=== PATIENT | male | born 1960 | race Caucasian/White ===

== ENCOUNTER 2020-09-03 12:20 | Outpatient (REF) | payer BC, SELFPAY ==
[2020-09-03 13:28] LABS: Influenza A PCR NEGATIVE (Negative); Influenza B PCR NEGATIVE (Negative); Resp Syncy Virus RNA Qual PCR NEGATIVE (Negative); SARS COV2 PCR INHOUSE NEGATIVE (Negative)
== END 2020-09-03 12:21 | disposition home or self-care (01) ==
LOC: HO.LNP 12:20
PROVIDERS: PCP Internal Medicine; Visit Provider Internal Medicine
DX: Z20.828 Contact with and (suspected) exposure to other viral communicable diseases (principal)
CPT/HCPCS: 0241U

== ENCOUNTER 2020-09-17 14:28 | Outpatient (REF) | payer BC, SELFPAY ==
[2020-09-17 15:34] LABS: Influenza A PCR NEGATIVE (Negative); Influenza B PCR NEGATIVE (Negative); Resp Syncy Virus RNA Qual PCR NEGATIVE (Negative); SARS COV2 PCR INHOUSE POSITIVE (Negative)
== END 2020-09-17 14:29 | disposition home or self-care (01) ==
LOC: HO.LNP 14:28
PROVIDERS: Visit Provider Internal Medicine
DX: Z20.822 Contact with and (suspected) exposure to COVID-19 (principal)
CPT/HCPCS: 0241U

== ENCOUNTER 2021-01-19 08:18 | Outpatient (REF) | payer BC, SELFPAY ==
[2021-01-19 10:27] LABS: MANUAL DIFF FLAG NO
[2021-01-19 10:41] LABS: Eosinophils Absolute Auto 0.3 X10*3/uL (0.0-0.4); Eosinophils Percent Auto 7.4 % (0-4); Hemoglobin 14.9 g/dl (14.0-18.0); Imm Gran Abs Auto 0.01 X10*3/uL (0.00-0.03); Imm Gran Pct Auto 0.2 % (0.0-0.4); Lymphocytes Absolute Auto 1.7 X10*3/uL (1.2-4.9); Lymphocytes Percent Auto 41.6 % (20-40); Mean Corpuscular HGB Conc 34.7 g/dl (31.0-36.0); Mean Corpuscular Hemoglobin 31.2 pg (27.0-33.0); Monocytes Absolute Auto 0.5 X10*3/uL (0.1-1.2); Monocytes Percent Auto 11.1 % (2-11); Neutrophils Absolute Auto 1.6 X10*3/uL (2.0-8.3); Neutrophils Percent Auto 38.7 % (45-73); Platelet Count 168 X10*3/uL (160-400); Red Blood Count 4.78 X10*6/uL (4.60-5.80); Red Cell Distribution Width 12.2 % (11.0-16.0)
[2021-01-19 11:39] LABS: Alanine Aminotransferase 24 U/L (0-40); Albumin Level 4.2 g/dL (3.5-5.0); Alkaline Phosphatase 63 U/L (39-117); Anion Gap 10 (12-20); Aspartate Amino Transferase 22 U/L (5-37); Bilirubin Total 1.3 mg/dL (0.0-1.0); Blood Urea Nitrogen 14 mg/dL (9-16); Calcium 8.8 mg/dL (8.4-10.2); Carbon Dioxide 28 mmol/L (22-29); Chloride 108 mmol/L (96-108); Cholesterol 116 mg/dL; Estimated Glomerular Filt Rate > 60; Glucose Fasting 95 mg/dL (60-99); HDL Cholesterol 46 mg/dL; Iron 227 mcg/dL (45-160); LDL Cholesterol Calculated 61 mg/dl; Potassium 4.3 mmol/L (3.3-5.1); Sodium 142 mmol/L (135-145); Total Iron Binding Capacity < 244 mcg/dL (228-428); Total Protein 6.9 g/dL (6.5-8.0); Triglycerides 45 mg/dL; Unsaturated Iron Binding < 17 ug/dL
[2021-01-19 12:22] LABS: Ferritin 315 ng/mL (20-250); Free T4 (Free Thyroxine) 1.25 ng/dL (0.71-1.85); Prostate Specific Antigen 1.89 ng/mL (<0.05-4.0); Thyroid Stimulating Hormone 0.59 uIU/mL (0.32-4.0)
== END 2021-01-19 08:19 | disposition home or self-care (01) ==
LOC: HO.10HDL 08:18
PROVIDERS: Visit Provider Internal Medicine
DX: Z00.00 Encounter for general adult medical examination without abnormal findings (principal); E03.9 Hypothyroidism, unspecified; E83.119 Hemochromatosis, unspecified; Z12.5 Encounter for screening for malignant neoplasm of prostate
CPT/HCPCS: 36415; 80053; 80061; 82728; 83540; 84153; 84439; 84443; 85025

== ENCOUNTER 2021-03-21 10:03 | Outpatient (REF) | payer BC, SELFPAY | END 2021-03-21 10:04 | disposition home or self-care (01) | LOC: HO.BBR 10:03 | PROVIDERS: Visit Provider Internal Medicine | DX: Z13.89 Encounter for screening for other disorder (principal) ==

== ENCOUNTER 2022-03-23 08:02 | Outpatient (REF) | payer BC, SELFPAY | END 2022-03-23 08:03 | disposition home or self-care (01) | LOC: HO.BBR 08:02 | PROVIDERS: Visit Provider Internal Medicine | DX: Z13.89 Encounter for screening for other disorder (principal) ==

== ENCOUNTER 2022-07-17 08:00 | Outpatient (RCR) | payer BC, SELFPAY ==
--- NOTE | 2022-08-23 08:59 | MHC.PT.DC ---
[facility] [place] [facility] [place] [facility] [place] [facility] [address] Dakota Rivera [address] [phone] F: [phone] F: [phone] F: [phone] F: [phone] Physical Therapy Discharge Report Diagnosis: BPPV Date of Surgery: Date of Evaluation: 07/13/22 Date of Discharge: 07/24/22 Treatments to Date: 3 Cancellations to Date: 0 No Shows to Date: 0 Discharge Status: Discharge Summary: At last attended visit we were unable to elicit symptoms and he remains negative for BPPV. He has not had symptoms in the last several weeks and we will DC at this time with instructions for pt to contact our office if he becomes symptomatic. Electronically signed by: Stefany Suarez PT DPT Please sign and return to therapist. Thank you for your referral.
== END 2022-08-23 09:00 | disposition home or self-care (01) ==
LOC: HO.PT 08:00
PROVIDERS: PCP Internal Medicine; Visit Provider Internal Medicine
DX: R42 Dizziness and giddiness (principal)
CPT/HCPCS: 95992; 97112; 97162

== ENCOUNTER 2022-08-30 11:40 | Outpatient (REF) | payer BC, SELFPAY ==
[2022-08-30 13:38] LABS: MANUAL DIFF FLAG NO
[2022-08-30 14:00] LABS: Basophils Absolute Auto 0.1 X10*3/uL (0.0-0.2); Basophils Percent Auto 1.1 % (0-2); Eosinophils Absolute Auto 0.2 X10*3/uL (0.0-0.4); Hemoglobin 15.1 g/dl (14.0-18.0); Imm Gran Abs Auto 0.02 X10*3/uL (0.00-0.03); Imm Gran Pct Auto 0.4 % (0.0-0.4); Mean Corpuscular HGB Conc 35.1 g/dl (31.0-36.0); Mean Corpuscular Volume 88.3 fL (80.0-98.0); Mean Platelet Volume 10.5 fL (9.4-12.4); Monocytes Absolute Auto 0.5 X10*3/uL (0.1-1.2); Monocytes Percent Auto 11.2 % (2-11); Neutrophils Absolute Auto 1.8 x10*3/uL (2.0-8.3); Neutrophils Percent Auto 40.3 % (45-73); Platelet Count 196 X10*3/uL (160-400); Red Blood Count 4.87 X10*6/uL (4.60-5.80); Red Cell Distribution Width 12.3 % (11.0-16.0); White Blood Count 4.5 X10*3/uL (4.8-10.8)
[2022-08-30 14:31] LABS: Alanine Aminotransferase 24 U/L (0-40); Albumin Level 4.5 g/dL (3.5-5.0); Alkaline Phosphatase 73 U/L (39-117); Anion Gap 11 (12-20); Aspartate Amino Transferase 22 U/L (5-37); Bilirubin Total 0.9 mg/dL (0.0-1.0); Blood Urea Nitrogen 14 mg/dL (9-16); Calcium 9.4 mg/dL (8.4-10.2); Carbon Dioxide 29 mmol/L (22-29); Chloride 104 mmol/L (96-108); Estimated Glomerular Filt Rate > 60; Glucose Random 100 mg/dL (60-115); Sodium 140 mmol/L (135-145); Total Protein 7.2 g/dL (6.5-8.0); Vitamin D 25-OH Total 39.7 ng/mL (>30)
== END 2022-08-30 11:41 | disposition home or self-care (01) ==
LOC: HO.10HDL 11:40
PROVIDERS: Visit Provider Internal Medicine
DX: Z01.818 Encounter for other preprocedural examination (principal); E83.119 Hemochromatosis, unspecified
CPT/HCPCS: 36415; 80053; 82306; 85025

== ENCOUNTER 2023-05-04 10:57 | Outpatient (REF) | payer BC, SELFPAY | END 2023-05-04 10:58 | disposition home or self-care (01) | LOC: HO.BBR 10:57 | PROVIDERS: Visit Provider Internal Medicine | DX: Z13.89 Encounter for screening for other disorder (principal) ==

== ENCOUNTER 2023-08-20 09:45 | Outpatient (REF) | payer BC, SELFPAY ==
--- NOTE | ~2023-08-20 | US_ITS ---
EXAMINATION: US EXTRACRANIAL CAROTID DUPLEX, BILATERAL CLINICAL INFORMATION: Dizziness, neck pulsation, headache COMPARISON: None available. TECHNIQUE: Real-time ultrasound and Doppler techniques (integrating B-mode 2-D vascular images, Doppler spectral analysis and color-flow Doppler imaging) were utilized to interrogate the extracranial carotid arteries, the vertebral arteries and proximal subclavian arteries bilaterally. The degree of stenosis is determined by criteria similar to NASCET. FINDINGS: Right Side: 1. There is no atherosclerotic plaque seen in the bifurcation/proximal ICA region. 2. The common carotid artery PSV proximally is 75 cm/s and distally 82 cm/s. 3. The proximal internal carotid artery velocities are 53 cm/s systolic and 21 cm/s diastolic. 4. The proximal external carotid artery PSV is 89 cm/s. 5. The vertebral artery shows antegrade flow. 6. The subclavian artery waveforms are normal. Left Side: 1. There is no atherosclerotic plaque seen in the bifurcation/proximal ICA region. 2. The common carotid artery PSV proximally is 96 cm/s and distally 91 cm/s. 3. The proximal internal carotid artery velocities are 44 cm/s systolic and 22 cm/s diastolic. 4. The proximal external carotid artery PSV is 95 cm/s. 5. The vertebral artery shows antegrade flow. 6. The subclavian artery waveforms are normal. US/US carotid duplex BI IMPRESSION: 1. RIGHT: Normal right internal carotid artery without atherosclerotic plaque or hemodynamically significant stenosis. 2. LEFT: Normal left internal carotid artery without atherosclerotic plaque or hemodynamically significant stenosis.
== END 2023-08-20 09:46 | disposition home or self-care (01) ==
LOC: HO.US 09:45
PROVIDERS: PCP Internal Medicine; Visit Provider Internal Medicine
DX: R09.89 Other specified symptoms and signs involving the circulatory and respiratory systems (principal)
CPT/HCPCS: 93880

== ENCOUNTER 2024-02-15 09:04 | Outpatient (REF) | payer BC, SELFPAY ==
--- NOTE | ~2024-02-15 | US_ITS ---
EXAMINATION: US COMPLETE ABDOMEN WITH LIVER ELASTOGRAPHY CLINICAL INFORMATION: Hereditary hemochromatosis. COMPARISON: Ultrasound abdomen 10/01/2018. TECHNIQUE: Real-time imaging of the abdominal viscera. Noninvasive ultrasound liver fibrosis assessment is performed using Catherine ElastPQ point quantification shear wave elastography (2D-SWE) with a C5-2 MHz transducer. Multiple elastography samples are obtained. FINDINGS: PANCREAS: Pancreas was obscured by bowel gas and could not be evaluated. ABDOMINAL AORTA: The proximal, middle, and distal aortic segments are normal in caliber. INFERIOR VENA CAVA: Visualized portions are normal. LIVER: Liver is enlarged with increased echogenicity consistent with a diagnosis of hemochromatosis or hepatic steatosis. No focal lesion or intrahepatic biliary duct dilatation. The right lobe measures 18.2 cm in length. The left lobe measures 13.0 cm in length. Portal flow is towards the liver (hepatopetal). Shear wave liver elastography median stiffness is 1.56 m/s (reference: normal median stiffness is 1.3 m/s or less). IQR/median stiffness to assess sampling precision is 0.04 (reference: good quality data set is IQR/median stiffness of 0.15 or less). GALLBLADDER: Status post cholecystectomy. COMMON BILE DUCT: Normal in caliber measuring 0.8 cm in diameter. RIGHT KIDNEY: No hydronephrosis. No renal calculi or focal parenchymal lesions. The kidney measures 10.3 cm in maximum dimension. LEFT KIDNEY: No hydronephrosis. No renal calculi or focal parenchymal lesions. The kidney measures 9.6 cm in maximum dimension. SPLEEN: Normal. The spleen measures 10.7 cm in maximum dimension. FREE FLUID: None. US/US abdomen comp w elastography IMPRESSION: 1. Enlarged echogenic liver consistent with the diagnosis of hemochromatosis or hepatic steatosis. 2. Liver elastography: In the absence of other known clinical signs, measurements rule out compensated advanced chronic liver disease. If there are known clinical signs, further testing may be needed for confirmation. REFERENCE: Society of Radiologists in Ultrasound Liver Stiffness Thresholds (2020): LIVER STIFFNESS THRESHOLDS: *Liver Stiffness equal or less than 1.3 m/s: High probability of being normal. *Liver Stiffness less than 1.7 m/s: In the absence of other known clinical signs, rules out compensated advanced chronic liver disease. *Liver Stiffness 1.7-2.1 m/s: Suggestive of compensated advanced chronic liver disease but need further test for confirmation. *Liver Stiffness over 2.1 m/s: Rules in compensated advanced chronic liver disease. *Liver Stiffness over 2.4 m/s: Suggestive of clinically significant portal hypertension. QUALITY OF DATA SET: *IQR/Median value equal or less than 0.15 implies a quality data set. *IQR/Median value over 0.15 implies a poor quality data set. SIGNIFICANT CHANGE FROM PRIOR EXAM: Significant change if liver stiffness measurement is 10% or greater from prior exam. OTHER CONSIDERATIONS: The stage of liver fibrosis may be overestimated in the setting of acute hepatitis, liver inflammation, elevated liver function tests, hepatic vascular congestion, obstructive cholestasis, non-fasting state, and infiltrative diseases such as amyloidosis and lymphoma. In some patients with NAFLD, the liver stiffness thresholds for compensated advanced chronic liver disease may be lower. In causes other than viral hepatitis and NAFLD, liver stiffness thresholds are not well established.
== END 2024-02-15 09:05 | disposition home or self-care (01) ==
LOC: HO.US 09:04
PROVIDERS: PCP Internal Medicine; Visit Provider Internal Medicine
DX: E83.110 Hereditary hemochromatosis (principal)
CPT/HCPCS: 76700; 76981

== ENCOUNTER 2024-02-15 09:42 | Outpatient (REF) | payer BC, SELFPAY ==
[2024-02-15 10:42] LABS: MANUAL DIFF FLAG NO
[2024-02-15 10:52] LABS: Basophils Percent Auto 0.9 % (0-2); Eosinophils Absolute Auto 0.2 X10*3/uL (0.0-0.4); Eosinophils Percent Auto 4.6 % (0-4); Hematocrit 43.9 % (42.0-52.0); Hemoglobin 15.5 g/dl (14.0-18.0); Imm Gran Abs Auto 0.01 X10*3/uL (0.00-0.03); Imm Gran Pct Auto 0.2 % (0.0-0.4); Lymphocytes Absolute Auto 1.9 X10*3/uL (1.2-4.9); Lymphocytes Percent Auto 43.3 % (20-40); Mean Corpuscular HGB Conc 35.3 g/dl (31.0-36.0); Mean Corpuscular Hemoglobin 31.1 pg (27.0-33.0); Monocytes Absolute Auto 0.6 X10*3/uL (0.1-1.2); Monocytes Percent Auto 12.8 % (2-11); Neutrophils Absolute Auto 1.7 x10*3/uL (2.0-8.3); Neutrophils Percent Auto 38.2 % (45-73); Platelet Count 174 X10*3/uL (160-400); Prothrombin Time 12.2 SEC (11.1-13.3); Red Blood Count 4.99 X10*6/uL (4.60-5.80); Red Cell Distribution Width 12.6 % (11.0-16.0); White Blood Count 4.4 X10*3/uL (4.8-10.8)
[2024-02-15 11:19] LABS: Alanine Aminotransferase 39 U/L (0-40); Albumin Level 4.3 g/dL (3.5-5.0); Alkaline Phosphatase 75 U/L (39-117); Aspartate Amino Transferase 26 U/L (5-37); Bilirubin Direct 0.5 mg/dL (0.0-0.5); Bilirubin Total 1.5 mg/dL (0.0-1.0); Iron 251 mcg/dL (45-160); Percent Iron Saturation 91 % (15-50); Total Iron Binding Capacity 276 mcg/dL (228-428); Total Protein 7.1 g/dL (6.5-8.0); Unsaturated Iron Binding < 25 ug/dL
[2024-02-15 11:20] LABS: Ferritin 480 ng/mL (20-250)
[2024-02-18 12:54] LABS: Alpha Fetoprotein 1.2 ng/mL (<6.1)
[2024-03-05 15:13] LABS: FIB-ALT 29 U/L (9-46); FIB-Alpha-2-Macroglobulin 237 mg/dL (106-279); FIB-Apolipoprotein A1 157 mg/dL (94-176); FIB-GGT 23 U/L (3-70); FIB-Haptoglobin 79 mg/dL (43-212); FIB-Total Bilirubin 1.1 mg/dL (0.2-1.2); Liver Fibrosis Score 0.51; Liver Fibrosis Stage F2; Nec Inflam Act Grade A0-A1; Nec Inflam Act Score 0.18
== END 2024-02-15 09:43 | disposition home or self-care (01) ==
LOC: HO.10HDL 09:42
PROVIDERS: Visit Provider Internal Medicine
DX: E83.110 Hereditary hemochromatosis (principal)
CPT/HCPCS: 36415; 80076; 81596; 82105; 82728; 83540; 85025; 85610

== ENCOUNTER 2024-03-13 08:50 | Outpatient (REF) | payer BC, SELFPAY | END 2024-03-13 08:51 | disposition home or self-care (01) | LOC: HO.BBR 08:50 | PROVIDERS: PCP Internal Medicine; Visit Provider Internal Medicine | DX: Z13.89 Encounter for screening for other disorder (principal) ==

== ENCOUNTER 2024-05-21 06:23 | Day surgery (SDC) | payer BC, SELFPAY ==
[2024-05-19 11:24] VITALS: BMI 25.1
--- NOTE | 2024-05-20 10:13 | P.CONAN_ITS ---
Documented by User: Jeanette Echavarria NP 05/20/24 10:13 HPI - Anesthesia Eval Consult details Narrative: 64yo M for Colonoscopy [facility] Past Medical History Medical History GERD (gastroesophageal reflux disease) Hiatal hernia Testicular cancer Thyroid disease Hemochromatosis Surgical History Surgical History History of esophagogastroduodenoscopy (EGD) Hx of left knee surgery Hx of cholecystectomy History of removal of testicle H/O colonoscopy Hx of lymph node excision Social History Social History Are you a primary customer care representative to a significant other at home: No Do you presently have visiting nurse or other home services: No Patient Tobacco Use Status: Never used Tobacco Use of substances other than those prescribed or required for medical reasons: No Have you been hit, kicked, punched, or otherwise hurt by someone within the past year? If so, by whom?: No Advance Directives: No Advance Directives Information Provided: Yes Recently lost weight without trying: No Eating poorly because of decreased appetite: No Meds Allergies Allergy/AdvReac Type Severity Reaction Status Date / Time Penicillins Allergy Mild UNKNOWN Verified 05/21/24 06:47 Home Medications ?Medication ?Instructions ?Recorded ?Confirmed ?Last Taken ?Type levothyroxine 125 mcg tablet 125 mcg PO DAILY 05/19/24 05/19/24 Unknown History (Levoxyl) omeprazole 20 mg capsule,delayed 20 mg PO DAILY 05/19/24 05/19/24 Unknown History release Exam Height,Weight and Vital Signs: Height 5 ft 10 in Weight 79.379 kg Assessment and Plan Assessment Anesthesia Assessment: Chart Reviewed Documented by User: Mckayla Priest MD 05/21/24 07:23 [facility] Past Medical History Medical History GERD (gastroesophageal reflux disease) Hiatal hernia Testicular cancer Thyroid disease Hemochromatosis Surgical History Surgical History History of esophagogastroduodenoscopy (EGD) Hx of left knee surgery Hx of cholecystectomy History of removal of testicle H/O colonoscopy Hx of lymph node excision History of Problems with Anesthesia: No Social History Social History Are you a primary customer care representative to a significant other at home: No Do you presently have visiting nurse or other home services: No Patient Tobacco Use Status: Never used Tobacco Use of substances other than those prescribed or required for medical reasons: No Have you been hit, kicked, punched, or otherwise hurt by someone within the past year? If so, by whom?: No Advance Directives: No Advance Directives Information Provided: Yes Recently lost weight without trying: No Eating poorly because of decreased appetite: No Meds Allergies Allergy/AdvReac Type Severity Reaction Status Date / Time Penicillins Allergy Mild UNKNOWN Verified 05/21/24 06:47 Home Medications ?Medication ?Instructions ?Recorded ?Confirmed ?Last Taken ?Type levothyroxine 125 mcg tablet 125 mcg PO DAILY 05/19/24 05/19/24 Unknown History (Levoxyl) omeprazole 20 mg capsule,delayed 20 mg PO DAILY 05/19/24 05/19/24 Unknown History release Exam Airway Mallampati Class: III TM Dist: >3cm Neck ROM: Full Loose/Missing/Broken Teeth: No Heart: RRR Lungs: CTA Assessment and Plan Assessment Anesthesia Assessment: Anesthesia Plan Discussed Final Anesthetic Review History of Problems with Anesthesia: No NPO: Yes ASA Class: II Final Preanesthetic Review: Meds/Allgs Chart Reviewed, Consent Obtained/Reviewed and Anes Risks/Benef Reviewed Patient Risk: Low Procedure Risk: Low Anesthetic Plan Anesthetic Plan: MAC: Disposition: Standard PACU
[2024-05-21 06:49] VITALS: BMI 24.0
[2024-05-21 07:00] VITALS: BP 126/81; PULSE 58; RESP 16; TEMP 36.2; O2SAT 98
[2024-05-21] MEDS: Lactated Ringers 1,000 ML 100 ML IVCONT (07:11)
[2024-05-21 08:25] VITALS: BP 116/77; PULSE 57; RESP 18; TEMP 36.2; O2SAT 100
--- NOTE | 2024-05-21 08:27 | P.BOP_ITS ---
Brief Operative Note Date of Service: 05/21/24 Pre-op diagnosis: Screening Post-op diagnosis: other (Colon polyp) Procedure: Colonoscopy to the cecum and TI with hot snare polypectomy Surgeon: Palmer Paz MD Anesthesia: MAC Was an Air Intercept Controller used for this Procedure?: No Estimated blood loss (mL): 0 Pathology: other (A. Cecal polyp) Condition: stable Disposition: PACU
[2024-05-21 08:30] VITALS: BP 109/73; PULSE 70; RESP 18; O2SAT 99
[2024-05-21 08:35] VITALS: BP 116/66; BP 122/54; PULSE 54; PULSE 63; RESP 16; O2SAT 100; O2SAT 99
[2024-05-21 08:45] VITALS: BP 124/54; PULSE 57; RESP 18; TEMP 36.3; O2SAT 100
--- NOTE | 2024-05-21 09:00 | OP_ITS ---
DATE OF SERVICE: 05/21/2024 SURGEON: Palmer Paz MD INDICATIONS: The patient presents for evaluation of personal history of tubular adenoma of the colon and colorectal cancer screening. Full consent was obtained from him for this, including risks of bleeding and perforation. PREOPERATIVE DIAGNOSIS: POSTOPERATIVE DIAGNOSIS: PROCEDURE PERFORMED: Colonoscopy to cecum and terminal ileum with hot snare polypectomy. ESTIMATED BLOOD LOSS: COMPLICATIONS: ANESTHESIA: Monitored anesthesia care. ASSISTANTS: SPECIMENS: PREOPERATIVE DIAGNOSES: Colorectal cancer screening and personal history of tubular adenoma of the colon. POSTOPERATIVE DIAGNOSES: Colorectal cancer screening and personal history of tubular adenoma of the colon, colon polyp, mild diverticulosis, and small internal hemorrhoids. DESCRIPTION OF PROCEDURE: The patient was placed in the left lateral decubitus position. The digital rectal exam revealed no abnormalities. The Olympus video pediatric colonoscope was entered into the rectum and advanced easily to the cecum. Once in the cecum, I did identify cecal pouch with appendiceal orifice and a normal-appearing ileocecal valve. The terminal ileum was cannulated and appeared normal. The scope was withdrawn back in the colon. The entire cecum was well visualized. In the cecum, adjacent to the area of the appendiceal orifice, was a flat but raised approximately 12 mm probable adenomatous polyp, which was removed by hot snare polypectomy recovered by suction. The polypectomy site appeared clean, without any sign of residual polyp nor bleeding. The scope was slowly withdrawn assessing all mucosal surfaces carefully. Preparation was excellent. I did not visualize any other polyps, colitis, nor angiodysplasia. There was a mild amount of sigmoid diverticulosis. In the rectum, scope was retroflexed visualizing small internal hemorrhoids, but no other pathology. The rectal mucosa appeared normal. The scope was straightened and withdrawn from the patient. He tolerated the procedure well and was returned to recovery area in stable condition. IMPRESSION: 1. Colon polyp. 2. Diverticulosis. 3. Internal hemorrhoids. PLAN: The results of the pathology will be checked. If this is a tubular adenoma, I would recommend a followup coloscopy in 3 years rather than 5 given its flat nature. If that happens only be hyperplastic, I would then recommend a followup coloscopy in 5 years. He will see me in 1 year for followup of the underlying hemochromatosis. He was advised to continue his blood donations at least every 2 to 3 months. He will otherwise see me on a p.r.n. basis. MD BARRY Duffy/MONALISA / [phone]
== END 2024-05-21 08:56 | disposition home or self-care (01) ==
PROVIDERS: PCP Internal Medicine; Visit Provider Internal Medicine
PROC: 0DJD8ZZ Inspection of Lower Intestinal Tract, Via Natural or Artificial Opening Endoscopic (ICD-10-PCS; CPT 45378; principal; 2024-05-21 07:30)
DX: Z12.11 Encounter for screening for malignant neoplasm of colon (principal); K63.5 Polyp of colon; K57.30 Diverticulosis of large intestine without perforation or abscess without bleeding; K64.8 Other hemorrhoids; Z86.010 Personal history of colon polyps; Z85.47 Personal history of malignant neoplasm of testis
CPT/HCPCS: 45385; 88305; J2704

== ENCOUNTER 2024-08-05 13:57 | Outpatient (REF) | payer BC, SELFPAY | END 2024-08-05 13:58 | disposition home or self-care (01) | LOC: HO.BBR 13:57 | PROVIDERS: PCP Internal Medicine; Visit Provider Internal Medicine | DX: Z13.89 Encounter for screening for other disorder (principal) ==

== ENCOUNTER 2024-12-18 13:13 | Outpatient (REF) | payer BC, SELFPAY ==
--- OUTSIDE RECORDS SUMMARY | 2024-12-18 16:13 | XMS_ITS ---
Author Organization [facility] Address [address] [place] [address] Care Team Providers Care Special Events Coordinator Name Role Phone Manpreet Winchester MD Primary Care Provider Palmer Quiles [phone] REASON FOR VISIT Phlebotomies and U/S Encounters Encounter Location Date Provider Diagnosis [facility] [address] [place] [address] 03/02/2024 Palmer Paz Plan Of Treatment No Information Progress Notes * ROMINA CABELLOOB:1960 (64 yo M)Acc No.[id number]:03/02/2024 Patient:?LAKESHA CABELLO :1960???Age:64 Y???Sex:Male Address:[address] [place] [address] * true * Date:? Generated for Jessiei robe/Mery/eTransmitting on:?12/18/2024 04:13 PM EDT
--- OUTSIDE RECORDS SUMMARY | 2024-12-18 16:13 | XMS_ITS ---
Author Organization [facility] Address [address] [place] [address] Care Team Providers Care Can Tender Name Role Phone Manpreet Winchester MD Primary Care Provider Palmer Quiles [phone] REASON FOR VISIT screening,hx polyps Problems Problem Type SNOMED Code ICD Code Onset Dates Problem Status W/U Status Risk Notes Problem Diverticular disease of colon (095138926) Diverticulosis of large intestine without perforation or abscess without bleeding (K57.30) Active confirmed Encounters Encounter Location Date Provider Diagnosis [facility] Outpatient [address] [place] [address] [id number] 05/21/2024 Palmer Paz Colon cancer scree tg Z12.11 ; Colon polyps K63.5 ; Diverticulosis of large intestine without perforation or abscess without bleeding K57.30 and Other hemorrhoids K64.8 Assessments Encounter Date Diagnosis (ICD Code) Assessment Notes Treatment Notes Treatment Clinical Notes Section Notes 05/21/2024 Colon cancer screening (ICD-10 - Z12.11) 05/21/2024 Colon polyps (ICD-10 - K63.5) 05/21/2024 Diverticulosis of large intestine without perforation or abscess without bleeding (ICD-10 - K57.30) 05/21/2024 Other hemorrhoids (ICD-10 - K64.8) Plan Of Treatment No Information Progress Notes * ROMINA CABELLOOB:1960 (64 yo M)Acc No.[id number]:05/21/2024 COLON WITH MAC Patient:?CABELLOCARRI DOWLINGY Provider:?Palmer Paz MD :1960???Age:64 Y???Sex:Male Cristian e:05/21/2024 Address:[address] [place] [address], [place] Pcp:Manpreet Winchester MD Subjective: * Chief Complaints: * ???1. Screening,hx polyps. * Medical History:? Objective: * Vitals:? Assessment: * Assessment: 1.?Colon cancer screening - Z12.11 (Primary)???2.?Colon polyps - K63.5???3.?Diverticulosis of large intestine without perforation or abscess without bleeding - K57.30???4.?Other hemorrhoids - K64.8??? Plan: * Treatment: * Procedure Codes:?84047 LESIO N REMOVAL COLONOSCOPY, Modifiers: PT * * The named appointment provid er may or may not be the originator of this progress note, and it is not deemed complete until electronically signed by the appointment provider. Sign off status: Pending * Provider:?Palmer Paz MD Date:? 024 Generated for Estefania nagel/Mery/eTransmitting on:?12/18/2024 04:13 PM EDT
--- OUTSIDE RECORDS SUMMARY | 2024-12-18 16:13 | XMS_ITS | Patient Health Record ---
Author Organization [facility] Address [address] [place] [address] Care Team Providers Care Osteopathic Neurologist Name Role Phone Manpreet Winchester MD Primary Care Provider Palmer Quiles [phone] Allergies Allergen (clinical drug ingredient) Drug/Non Drug Allergy documented on EMR Reaction Allergy Type Onset Date Status Penicillin Unknown Drug Allergy Active Results Component Value Reference Range Notes Complete Blood Count Auto Di ff Reviewed date:02/15/2024 01:07:19 PM Interpretation: Performing Lab:[facility], [address] [place] [phone] Notes/Report: White Blood Count 4.4 4.8-10.8 X10*3/uL Red Blood Count 4.99 4.60-5.80 X10*6/uL Hemoglobin 15.5 14.0-18.0 g/dl Hematocrit 43.9 42.0-52.0 % Mean Corpuscular Volume 88.0 80.0-98.0 fL Mean Corpuscular Hemoglobin 31.1 27.0-33.0 pg Mean Corpuscular HGB Conc 35.3 31.0-36.0 g/dl Red Cell Distribution Width 12.6 11.0-16.0 % Platelet Count 174 160-400 X10*3/uL Mean Platelet Volume 10.0 9.4-12.4 fL Neutrophils Percent Auto 38.2 45-73 % Imm Gran Pct Auto 0.2 0.0-0.4 % Lymphocytes Percent Auto 43.3 20-40 % Monocytes Percent Auto 12.8 2-11 % Eosinophils Percent Auto 4.6 0-4 % Basophils Percent Auto 0.9 0-2 % NRBC Pct Auto 0.0 0.0-0.2 /100WBC Neutrophils Absolute Auto 1.7 2.0-8.3 x10*3/uL Imm Gran Abs Auto 0.01 0.00-0.03 X10*3/uL Lymphocytes Absolute Auto 1.9 1.2-4.9 X10*3/uL Monocytes Absolute Auto 0.6 0.1-1.2 X10*3/uL Eosinophils Absolute Auto 0.2 0.0-0.4 X10*3/uL Basophils Absolute Auto 0.0 0.0-0.2 X10*3/uL NRBC Abs Auto 0.000 0.0-0.012 X10*3/uL Prothrombin Time INR Reviewed date:02/15/2024 01:06:50 PM Interpretation: Performing Lab:[address] [address] Notes/Report: Prothrombin Time 12.2 11.1-13.3 SEC INTERNATIONAL NORM RATIO 1.0 0.9-1.1 INTERNATIONAL NORMALIZED RATIO (INR) REFERENCE RANGES Reference Range For patients not on anticoagulant therapy: 0.9 - 1.1 INR ranges for oral anticoagulant therapy: For prevention and treatment of venous thrombosis and pulmonary embolism: 2.0 - 3.0 For acute myocardial infarction with aspirin therapy: 2.0 - 3.0 For acute myocardial infarction without aspirin therapy: 3.0 - 4.0 For patients with mechanical prosthetic heart valves: 2.5 - 3.5 Liver Panel Reviewed date:02/15/2024 01:08:01 PM Interpretation: Performing Lab:[address] [address] Notes/Report: Bilirubin Total 1.5 0.0-1.0 mg/dL Bilirubin Direct 0.5 0.0-0.5 mg/dL Aspartate Amino Transferase 26 5-37 U/L Alanine Aminotransferase 39 0-40 U/L Total Protein 7.1 6.5-8.0 g/dL Albumin Level 4.3 3.5-5.0 g/dL Alkaline Phosphatase 75 39-117 U/L IRON PROFILE Reviewed date:03/02/2024 02:43:55 PM Interpretation: Performing Lab:[address] [place] [address] Notes/Report: Iron 251 45-160 mcg/dL Total Iron Binding Capacity 276 228-428 mcg/dL Percent Iron Saturation 91 15-50 % Unsaturated Iron Binding < 25 Ferritin Reviewed date:02/29/2024 05:55:37 PM Interpretation: Performing Lab:[facility], [address] [place] [phone] Notes/Report: Ferritin 480 20-250 ng/mL Alpha Fetoprotein Reviewed date:05/18/2024 06:16:23 PM Interpretation: Performing Lab:[facility], [address] [place] [phone] Notes/Report: Alpha Fetoprotein 1.2 <6.1 ng/mL This test was performed using the Haivision chemiluminescent method. Values obtained from different assay methods cannot be used interchangeably. AFP levels, regardless of value, should not be interpreted as absolute evidence of the presence or absence of disease. THIS TEST WAS PERFORMED AT: [employer] [address] [place] [phone] MEGGAN KAUR MD Liver Fibrosis Pnl Reviewed date:05/18/2024 06:16:31 PM Interpretation: Performing Lab:[address] [address] Notes/Report: Liver Fibrosis Score 0.51 Liver Fibrosis Stage F2 Liver Fibrosis Interpretation SEE NOTE moderate fibrosis Fibro Test Score (f) Metavir Score f>=0 and f<=0.21 : F0 (no fibrosis) f>0.21 and f<=0.27 : F0-F1 (no fibrosis) f>0.27 and f<=0.31 : F1 (minimal fibrosis) f>0.31 and f<=0.48 : F1-F2 (minimal fibrosis) f>0.48 and f<=0.58 : F2 (moderate fibrosis) f>0.58 and f<=0.72 : F3 (advanced fibrosis) f>0.72 and f<=0.74 : F3-F4 (advanced fibrosis) f>0.74 and f<=1.00 : F4 (severe fibrosis) Nec Inflam Act Score 0.18 Nec Inflam Act Grade A0-A1 Nec Inflam Act Interpretation SEE NOTE no activity ActiTest Score (a) Metavir Score a>=0 and a<=0.17 : A0 (no activity) a>0.17 and a<=0.29 : A0-A1 (no activity) a>0.29 and a<=0.36 : A1 (minimal activity) a>0.36 and a<=0.52 : A1-A2 (minimal activity) a>0.52 and a<=0.60 : A2 (significant activity) a>0.60 and a<=0.62 : A2-A3 (significant activity) a>0.62 and a<=1.00 : A3 (severe activity) LNS-Zmlny-9-Macroglobuli n 237 106-279 mg/dL FIB-Haptoglobin 79 43-212 mg/dL FIB-Apolipoprotein A1 157 94-176 mg/dL FIB-Total Bilirubin 1.1 0.2-1.2 mg/dL FIB-GGT 23 3-70 U/L FIB-ALT 29 9-46 U/L Reference ID [id number] Footnote SEE NOTE The reliability of results is dependent on compliance with the preanalytical and analytical conditions recommended by [employer]. The tests have to be deferred for: acute hemolysis, acute hepatitis, acute inflammation, extra hepatic cholestasis. The advice of a specialist should be sought for interpretation in chronic hemolysis and Gilbert's syndrome. The test interpretation is not validated in liver transplant patients. Isolated extreme values of one of the components should lead to caution in interpreting the results. In case of discordance between a biopsy result and a test, it is recommended to seek the advice of a specialist. The causes of these discordances could be due to a flaw of the test or to a flaw in the biopsy: i.e. a liver biopsy has a 33% variability rate for one fibrosis stage. FibroTest is interpretable for chronic hepatitis B and C, alcoholic and non alcoholic steatosis. ActiTest is interpretable for chronic hepatitis B and C. The performance characteristics have been determined by [facility]. It has not been cleared or approved by the U.S. Food and Drug Administration. Performance characteristics refer to the analytical performance of the test. [employer], the associated logo, [employer] and all associated [employer] ceja are the registered trademarks of [employer]. All third alliance party ceja - (R) and (TM) - are the property of their respective owners. (C) 9620-9404 [employer]. All rights reserved. THIS TEST WAS PERFORMED AT: [facility] [address] [place] [address] WALESKA JAIME MD,PHD,ROOPA US abdomen comp w elastograp hy Reviewed date:05/18/2024 06:14:55 PM Interpretation: Performing Lab: Notes/Report: [address] [address] Ultrasound Report Signed Patient: Lakesha Olivares MR#: [id number] 563 : 1960 Acct:[id number] Age/Sex: 64 / M ADM Date: 02/15/24 Loc: HO.US Attending Dr: Palmer Paz MD Ordering Physician: Palmer Paz MD Date of Service: 02/15/24 Procedure(s): US abdomen comp w elastography Accession Number(s): [id number] cc: Manpreet Winchester MD; Palmer Paz MD EXAMINATION: US COMPLETE ABDOMEN WITH LIVER ELASTOGRAPHY CLINICAL INFORMATION: Hereditary hemochromatosis. COMPARISON: Ultrasound abdomen 10/01/2018. TECHNIQUE: Real-time imaging of the abdominal viscera. Noninvasive ultrasound liver fibrosis assessment is performed using Catherine [employer]ast[employer] point quantification shear wave elastography (2D-SWE) with a C5-2 MHz transducer. Multiple elastography samples are obtained. FINDINGS: PANCREAS: Pancreas was obscured by bowel gas and could not be evaluated. ABDOMINAL AORTA: The proximal, middle, and distal aortic segments are normal in caliber. INFERIOR VENA CAVA: Visualized portions are normal. LIVER: Liver is enlarged with increased echogenicity consistent with a diagnosis of hemochromatosis or hepatic steatosis. No focal lesion or intrahepatic biliary duct dilatation. The right lobe measures 18.2 cm in length. The left lobe measures 13.0 cm in length. Portal flow is towards the liver (hepatopetal). Shear wave liver elastography median stiffness is 1.56 m/s (reference: normal median stiffness is 1.3 m/s or less). IQR/median stiffness to assess sampling precision is 0.04 (reference: good quality data set is IQR/median stiffness of 0.15 or less). GALLBLADDER: Status post cholecystectomy. COMMON BILE DUCT: Normal in caliber measuring 0.8 cm in diameter. RIGHT KIDNEY: No hydronephrosis. No renal calculi or focal parenchymal lesions. The kidney measures 10.3 cm in maximum dimension. LEFT KIDNEY: No hydronephrosis. No renal calculi or focal parenchymal lesions. The kidney measures 9.6 cm in maximum dimension. SPLEEN: Normal. The spleen measures 10.7 cm in maximum dimension. FREE FLUID: None. US/US abdomen comp w elastography IMPRESSION: 1. Enlarged echogenic liver consistent with the diagnosis of hemochromatosis or hepatic steatosis. 2. Liver elastography: In the absence of other known clinical signs, measurements rule out compensated advanced chronic liver disease. If there are known clinical signs, further testing may be needed for confirmation. REFERENCE: Society of Radiologists in Ultrasound Liver Stiffness Thresholds (2020): LIVER STIFFNESS THRESHOLDS: *Liver Stiffness equal or less than 1.3 m/s: High probability of being normal. *Liver Stiffness less than 1.7 m/s: In the absence of other known clinical signs, rules out compensated advanced chronic liver disease. *Liver Stiffness 1.7-2.1 m/s: Suggestive of compensated advanced chronic liver disease but need further test for confirmation. *Liver Stiffness over 2.1 m/s: Rules in compensated advanced chronic liver disease. *Liver Stiffness over 2.4 m/s: Suggestive of clinically significant portal hypertension. QUALITY OF DATA SET: *IQR/Median value equal or less than 0.15 implies a quality data set. *IQR/Median value over 0.15 implies a poor quality data set. SIGNIFICANT CHANGE FROM PRIOR EXAM: Significant change if liver stiffness measurement is 10% or greater from prior exam. OTHER CONSIDERATIONS: The stage of liver fibrosis may be overestimated in the setting of acute hepatitis, liver inflammation, elevated liver function tests, hepatic vascular congestion, obstructive cholestasis, non-fasting state, and infiltrative diseases such as amyloidosis and lymphoma. In some patients with NAFLD, the liver stiffness thresholds for compensated advanced chronic liver disease may be lower. In causes other than viral hepatitis and NAFLD, liver stiffness thresholds are not well established. Dictated By: Mumtaz Jeffrey MD Signed By: <Electronically signed by Mumtaz Jeffrey MD in OV> 03/05/24 1830 DD/ 0929 TD/TT: Sink Cutter: [address] [place] [address] Ultrasound Report Signed Patient: Mirza Olivares MR#: [id number] 563 : 1960 Acct:[id number] Age/Sex: 64 / M ADM Date: 02/15/24 Loc: HO.US Attending Dr: Palmer Paz MD Ordering Physician: Palmer Paz MD Date of Service: 02/15/24 Procedure(s): US abdomen comp w elastography Accession Number(s): [id number] cc: Manpreet Winchester MD ; Palmer Paz MD EXAMINATION: US COMPLETE ABDOMEN WITH LIVER ELASTOGRAPHY CLINICAL INFORMATION: Hereditary hemochromatosis. COMPARISON: Ultrasound abdomen 10/01/2018. TECHNIQUE: Real-time imaging of the abdominal viscera. Noninvasive ultrasound liver fibrosis assessment is performed using [employer]ast[employer] point quantification shear wave elastography (2D-SWE) with a C5-2 MHz transducer. Multiple elastography samples are obtained. FINDINGS: PANCREAS: Pancreas w as obscured by bowel gas and could not be evaluated. ABDOMINAL AORTA: The proximal, middle, and distal aortic segments are normal in caliber. INFERIOR VENA CAVA: Visualized portions are normal. LIVER: Liver is enlarged with increased echogenicity consistent with a diagnosis of hemochromatosis or hepatic steatosis. No focal lesion or intrahepatic biliary duct dilatation. The right lobe measu res 18.2 cm in length. The left lobe measures 13.0 cm in length. Portal flow is towar ds the liver (hepatopetal). Shear wave liver elastography median stiffness is 1.56 m/s (reference: normal median stiffn ess is 1.3 m/s or less). IQR/median stiffness to assess sampling precision is 0.04 (reference: good quality data se t is IQR/median stiffness of 0.15 or less). GALLBLADDER: Status post cholecystectomy. COMMON BILE DUCT: Normal in caliber measuring 0.8 cm in diameter. RIGHT KIDNEY: No hydronephrosis. No renal calculi or focal parenchymal lesions. The kidney measures 10.3 cm in maximum dimension. LEFT KIDNEY: No hydronephrosis. No renal calculi or focal parenchymal lesions. The kidney measures 9.6 cm in maximum dimension. SPLEEN: Normal. The spleen measures 10.7 cm in maximum dimension. FREE FLUID: None. US/US abdomen comp w elastography IMPRESSION: 1. Enlarged echogeni c liver consistent with the diagnosis of hemochromatosis or hepatic steatosis. 2. Liver elastograph y: In the absence of other known clinical signs, measurements rule ou t compensated advanced chronic liver disease. If there are known clinical signs, further testing may be needed for confirmation. REFERENCE: Society of Radiologi sts in Ultrasound Liver Stiffness Thresholds (2020): LIVER STIFFNESS THRESHOLDS: *Liver Stiffness equ al or less than 1.3 m/s: High probability of being normal. *Liver Stiffness les s than 1.7 m/s: In the absence of other known clinical signs, rule s out compensated advanced chronic liver disease. *Liver Stiffness 1.7-2.1 m/s: Suggestive of compensated advanced chronic liver diseas e but need further test for confirmation. *Liver Stiffness ove r 2.1 m/s: Rules in compensated advanced chronic liver disease. *Liver Stiffness ove r 2.4 m/s: Suggestive of clinically significant portal hypertension. QUALITY OF DATA SET: *IQR/Median value eq ual or less than 0.15 implies a quality data set. *IQR/Median value ov er 0.15 implies a poor quality data set. SIGNIFICANT CHANGE F ROM PRIOR EXAM: Significant change i f liver stiffness measurement is 10% or greater from prior exam. OTHER CONSIDERATIONS: The stage of liver fibrosis may be overestimated in the setting of acute hepatitis, cherri er inflammation, elevated liver function tests, hepatic vascular congestion, obstructive cholestasis, non-fasting state, and infiltrat marisabel diseases such as amyloidosis and lymphoma. In some patients with NAFLD, the liver stiffness thresholds for compensated advanced chronic liver disease may be lower. In causes other than viral hepatitis and NAFLD, liver stiffness thresholds are not well established. Dictated By: Mumtaz Jeffrey MD Signed By: <Electronically signed by Mumtaz Jeffrey MD in OV> 03/05/24 1830 DD/ 0962 TD/TT: Sink Cutter: LAUREN Pathology (Not yet reviewed by provider) Interpretation: Performing Lab:[facility], [address] [place] [phone] Notes/Report: --- Name: Lakesha Olivares Age/Sex: 64/M : 1960 Unit#: [id number] Attend Dr: Palmer Paz MD Re05/21/24 Status : [facility] Location: [facility] Disch: --- SPEC : [id number] RECD : 05/21/24 STATUS: [facility] NUM: [id number] PETER: 05/21/24-[address] [facility] [address]: Palmer Paz MD ENTERED: 05/21/24-05 23 SP TYPE: Surgical OTHR DR: Manpreet Winchester MD ORDERED: HE Stain/3, Gross Micro L4 Diagnosis Colon, cecal polyp: Polypoid colonic mucosa with lymphoid aggregate and minor crypt distortion; no adenomatous dysplasia seen. Clinical History Pre-Op Dx: Encounter for screening for malignant neoplasm of colon Post-Op Dx: Polyp, diverticulosis, hemorrhoids Microscopic Description Multiple microscopic sections reviewed. Material Received Cecal polyp Gross Description Received in formalin labeled cecal polyp is a 0.5 cm polypoid resendez brown soft tissue fragment, entirely submitted in cassette A. Copies To: Manpreet Winchester MD [facility] [address] [place] [place] [id number] Palmer Paz MD [facility] [address] [place] [phone] --- Signed (signature on file) Mirtha Audra 05/22/24 1533 --- END OF REPORT Reason For Referral Referring Provider First Name Manpreet Referring Provider Last Name Ranulfo Referring Provider Speciality Internal M edicine Referred Organization [facility] Referred Provider Palmer Paz Referred Address [address] [place] [address],[place], [place],[address], Referred Provider Specialty Gastroentero logy General Notes Hilda Almaguer 024 12:04:39 PM EDT > called Dr. Winchester's to request an [facility] Blue referral for visit with Dr Paz on [phone] Referral Priority Routine Medications Medication SIG (Take, Route, Fr equency, Duration) Notes Start Date End Date Status PriLOSEC Active Levoxyl 125 mg 1 po qd Activ e Immunizations Vaccine Route Administration Date Status Comme nts Influenza Unknown 09/17/2018 Refused Problems Problem Type SNOMED Code ICD Code Onset Dates Problem Status W/U Status Risk Notes Problem Colon cancer screening (638722272) Colon cancer screening (Z12.11) Active confirmed Problem 506952713 Encounter for screening for malignant neoplasm of colon (Z12.11) Active confirmed Problem History of adenomatous polyp of colon (382431742) History of adenomatous polyp of colon (Z86.010) Active confirmed Problem 136585240 Abdominal bloati ng (R14.0) Active confirmed Problem 843904884 Change in bowel habits (R19.4) Active confirmed Problem 31221186 Hereditary hemochromatosis (E83.110) Active confirmed Problem Diverticular disease of colon (350252499) Diverticulosis of large intestine without perforation or abscess without bleeding (K57.30) Active confirmed Problem 366812273 Hx of adenomatou s colonic polyps (Z86.010) Active confirmed Vital Signs Blood pressure diastolic 00 mm Hg 02/05/2024 Height 70 in 02/05/2024 Blood pressure systolic 00 mm Hg 02/05/2024 Weight 175 lbs 02/05/2024 BMI 25.11 kg/m2 02/05/2024 Encounters Encounter Location Date Provider Diagnosis [facility] Outpatient [address] [place], [place] [phone] 05/21/2024 Palmer Brandi Colon cancer screeni ng Z12.11 ; Colon polyps K63.5 ; Diverticulosis of large intestine without perforation or abscess without bleeding K57.30 and Other hemorrhoids K64.8 [facility] [address] [facility] [address] [place] [phone] 02/05/2024 Palmer Paz Hereditary hemochromatosis E83.110 ; History of adenomatous polyp of colon Z86.010 and Colon cancer screening Z12.11 [facility] [address] [address] 03/02/2024 Palmer Paz Assessments Encounter Date Diagnosis (ICD Code) Assessment Notes Treatment Notes Treatment Clinical Notes Section Notes 05/21/2024 Colon cancer screening (ICD-10 - Z12.11) 05/21/2024 Colon polyps (ICD-10 - K63.5) 02/05/2024 History of adenomatous polyp of colon (ICD-10 - Z86.010) Overall, Lakesha appears quite well. I did recommend a followup colonoscopy for further screening purposes given his history of a tubular adenoma, family history of colon cancer, his last colonoscopy being done 5 years ago. We Did review the rationale for that in regard to colon cancer prevention. Full consent was obtained for this, including risks of bleeding and perforation. The procedure will be done with monitored anesthesia care. His reflux seems to be stable on his current regimen of every other day Prilosec. Given no worrisome symptoms and a negative upper endoscopy the past, I don't think that needs to be repeated at the present time. I did advise him to continue his current medical regimen. In regard to his hemachromatosis I did recommend that we check a liver ultrasound and the below blood work. I did advise him to continue his phlebotomies but depending upon the results of his iron studies we could always increase or decrease the interval of those as needed. Lakesha was comfortable with this plan. Thank you again for allowing me to participate in Lakesha's care. I shall continue to keep you advised of his progress. 02/05/2024 Hereditary hemochromatosis (ICD-10 - E83.110) Overall, Lakesha appears quite well. I did recommend a followup colonoscopy for further screening purposes given his history of a tubular adenoma, family history of colon cancer, his last colonoscopy being done 5 years ago. We Did review the rationale for that in regard to colon cancer prevention. Full consent was obtained for this, including risks of bleeding and perforation. The procedure will be done with monitored anesthesia care. His reflux seems to be stable on his current regimen of every other day Prilosec. Given no worrisome symptoms and a negative upper endoscopy the past, I don't think that needs to be repeated at the present time. I did advise him to continue his current medical regimen. In regard to his hemachromatosis I did recommend that we check a liver ultrasound and the below blood work. I did advise him to continue his phlebotomies but depending upon the results of his iron studies we could always increase or decrease the interval of those as needed. Lakesha was comfortable with this plan. Thank you again for allowing me to participate in Lakesha's care. I shall continue to keep you advised of his progress. 05/21/2024 Diverticulosis of large intestine without perforation or abscess without bleeding (ICD-10 - K57.30) 02/05/2024 Colon cancer screening (ICD-10 - Z12.11) Overall, Lakesha appears quite well. I did recommend a followup colonoscopy for further screening purposes given his history of a tubular adenoma, family history of colon cancer, his last colonoscopy being done 5 years ago. We Did review the rationale for that in regard to colon cancer prevention. Full consent was obtained for this, including risks of bleeding and perforation. The procedure will be done with monitored anesthesia care. His reflux seems to be stable on his current regimen of every other day Prilosec. Given no worrisome symptoms and a negative upper endoscopy the past, I don't think that needs to be repeated at the present time. I did advise him to continue his current medical regimen. In regard to his hemachromatosis I did recommend that we check a liver ultrasound and the below blood work. I did advise him to continue his phlebotomies but depending upon the results of his iron studies we could always increase or decrease the interval of those as needed. Lakesha was comfortable with this plan. Thank you again for allowing me to participate in Lakesha's care. I shall continue to keep you advised of his progress. 05/21/2024 Other hemorrhoids (ICD-10 - K64.8) Plan Of Treatment Pending Test Test Name Order Date LIVER PROFILE 02/05/2024 IRON + IBC (FE) 02/05/2024 CBC w DIFF 02/05/2024 ALPHA-FETOPROTEIN,TUMOR MARKER Prothrombin Time INR 02/05/2024 Ferritin 02/05/2024 Liver Fibrosis Pnl 02/05/2024 Pathology 05/21/2024 US abdomen comp w elastography Future Test Test Name Order Date COLONOSCOPY 08/09/2012 COLONOSCOPY 09/17/2018 COLONOSCOPY 02/05/2024 Insurance Providers Payer Name Payer Address Payer Phone Subscriber Number Group Number Insured Name Patient Relationship to Insured Coverage Start Date Coverage End Date [facility] [employer] PROF[employer]AL CLAIM[employer] [address] [place] [address] [id number] LAKESHA OLIVARES Self - patient is the insured Medical (General) History Medical History History ICD Code Hemochromatosis diagnosed by Dr. Douglass with a liver biopsy in the for which he undergoes phlebotmies on a regular basis. He was going about once every 6 months as of the February 2024 office visit Hypothyroidism Testicular cancer in 1988 tr eated with surgery as well as lymph node dissection. He did not receive chemotherapy. Denies MS,DM,CVA,Lung disease,renal dise ase Tubular adenoma removed in 03/2007; negat marisabel colonoscopy in 2012 GERD-hiatal hernia-EGD in 2006 Negative screening colonoscopy in 2018 Surgical History Surgery Date(Month/Year) Testicular Cancer surgery-re moved left testicle as well as a lymph node dissection 1988 Cholecystectomy knee surgery left
--- OUTSIDE RECORDS SUMMARY | 2024-12-18 16:13 | XMS_ITS ---
Author Organization [facility] Address [address] [place] [address] Care Team Providers Care Insole Beveler Name Role Phone Manpreet Winchester MD Primary Care Provider Palmer Quiles Unavailable [phone] Allergies Allergen (clinical drug ingredient) Drug/Non Drug Allergy documented on EMR Reaction Allergy Type Onset Date Status Penicillin Unknown Drug Allergy Active REASON FOR VISIT Patient presents today for a COLON SCREENING Medications Medication SIG (Take, Route, Fr equency, Duration) Notes Start Date End Date Status PriLOSEC Active Levoxyl 125 mg 1 po qd Activ e Problems Problem Type SNOMED Code ICD Code Onset Dates Problem Status W/U Status Risk Notes Problem History of adenomatous polyp of colon (279192534) History of adenomatous polyp of colon (Z86.010) Active confirmed Problem Colon cancer screening (699021130) Colon cancer screening (Z12.11) Active confirmed Vital Signs Blood pressure systolic 00 mm Hg 02/05/20 24 Blood pressure diastolic 00 mm Hg 024 Height 70 in 02/05/2024 Weight 175 lbs 02/05/2024 BMI 25.11 kg/m2 02/05/2024 Encounters Encounter Location Date Provider Diagnosis [facility] [address] [place], [place] [address] [address] 02/05/2024 Palmer Paz Hereditary hemochromatosis E83.110 ; History of adenomatous polyp of colon Z86.010 and Colon cancer screening Z12.11 Assessments Encounter Date Diagnosis (ICD Code) Assessment Notes Treatment Notes Treatment Clinical Notes Section Notes 02/05/2024 Hereditary hemochromatosis (ICD-10 - E83.110) Overall, Patric appears quite well. I did recommend a [...] decrease the interval of those as needed. Patric was comfortable with this plan. Thank you again for allowing me to participate in Patric's care. I shall continue to keep you advised of his progress. 02/05/2024 History of adenomatous polyp of colon (ICD-10 - Z86.010) Overall, Patric appears quite well. I did recommend a [...] decrease the interval of those as needed. Patric was comfortable with this plan. Thank you again for allowing me to participate in Patric's care. I shall continue to keep you advised of his progress. 02/05/2024 Colon cancer screening (ICD-10 - Z12.11) Overall, Patric appears quite well. I did recommend a [...] decrease the interval of those as needed. Patric was comfortable with this plan. Thank you again for allowing me to participate in Patric's care. I shall continue to keep you advised of his progress. Plan Of Treatment Pending Test Test Name Order Date LIVER PROFILE 02/05/2024 IRON + IBC (FE) 02/05/2024 CBC w DIFF 02/05/2024 ALPHA-FETOPROTEIN,TUMOR MARKER 4 Prothrombin Time INR 02/05/2024 Ferritin 02/05/2024 Liver Fibrosis Pnl 02/05/2024 US abdomen comp w elastography 4 Future Test Test Name Order Date COLONOSCOPY 02/05/2024 Next Appt Details Follow Up: prn, Reason: Progress Notes * ROMINA CABELLOOB:1960 (64 yo M)Acc No.[id number]:02/05/2024 Progress Notes Patient:?PATRIC CABELLO Provider:?Palmer Paz MD :1960???Age:63 Y???Sex:Male Cristian e:02/05/2024 Address:[address] [place] [address] [place], [id number] Pcp:Manpreet Winchester MD Subjective: * Chief Complaints: * ???Patient presents today fo r a COLON SCREENING * HPI: ???incontinence:? I saw Patric in consultation today in regard to his underlying history of a tubular adenoma of the colon, needs colorectal cancer screening, and history of hereditary hemachromatosis. ?I last saw Patric in 2018, at which time he underwent a negative followup screening colonoscopy. Since that time he has been feeling well. He enjoys a good appetite, without any dysphagia, early satiety, abdominal pain, jaundice, nor unintentional weight loss. He does take Prilosec every other day with good relief of heartburn symptoms. He did have an upper endoscopy back in 2006 that was negative for any significant findings. ?He reports his bowel movements have been regular without any signs of bleeding. He reports a family history of colon cancer in a grandfather. He did have a tubular adenoma removed on his initial colonoscopy in 2006. ?In regard to his underlying hereditary hemochromatosis he describes having a phlebotomy about every 6 months or so. I did check the hospital computer and did not see any lab work in the past year or so. He did have a normal CBC with platelet count and liver profile in August of 2022. In 2020 he had a ferritin of 315 with an iron of 227. * ROS:?General/Constitutional:?Change in appetite?denies.?Chills?denies.?Fatigue?denies.?Ophthalmologic:?Patient denies? Negative..?ENT:?Patient denies?Negative..?Respiratory:?Patient denies?No coughing/hemoptysis..?Cardiovascular:?Patient denies? No chest pain/orthopnea..?Gastrointestinal:?Comments?See HPI for details.?Genitourinary:?Patient denies? No dysuria/hematuria..?Musculoskeletal:?Patient denies? No specific arthralgias/myalgias..?Skin:?Patient denies?No rash/pruritus..?Neurologic:?Patient denies? No headaches/seizures..?Psychiatric:?Patient denies?Negative..? * Medical History:? * Surgical History:? Testicula r Cancer surgery-removed left testicle as well as a lymph node dissection 1989Cholecystectomy knee surgery left * Hospitalization/Major Diagno stic Procedure:?No Hospitalization History. * Family History:?Father: dece ased.?Mother: .?Maternal Grand Father: Colon Cancer in his 70's.? 2 sisters have hemochromatosis. * Social History:?Tobacco Use:?Tobacco Use/Smoking?Are you a: nonsmoker.?Drugs/Alcohol:?Alcohol Screen?Points: 2, Interpretation: Negative.?Miscellaneous:?Marital status: and has four children.7 grandchildren. 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 ???Nonsmoker; occasional alcohol. * Medications:?TakingLevoxyl 1 25 mg 1 po qdPriLOSEC Medication List reviewed and reconciled with the patientTaking Levoxyl 125 mg 1 po qdTaking PriLOSEC Medication List reviewed and reconciled with the patient * Allergies:?Penicillinyes[All ergies Verified] Objective: * Vitals:?Wt: 175 lbs, Ht: 70 in, BMI:25.11 Index, BP: 00/00 mm Hg. * Examination: ???General Examination: ?GENERAL APPEARANCE:?pleasant, well nourished, well developed, in no acute distress.?EYES:?sclera non-icteric.?ORAL CAVITY:?mucosa moist.?NECK/THYROID:?no cervical lymphadenopathy, neck supple.?SKIN:?nonjaundiced, no spider angiomata..?HEART:?S1, S2 normal.?LUNGS:?clear to auscultation bilaterally.?ABDOMEN:?normal bowel sounds, no guarding or rigidity, no hepatosplenomegaly, no masses palpable, soft, nontender, nondistended..?EXTREMITIES:?no edema.?NEUROLOGIC:?alert and oriented.? Assessment: * Assessment: 1.?Hereditary hemochromatosi s - E83.110 (Primary)?2.?History of adenomatous polyp of colon - Z86.010?3.?Colon cancer screening - Z12.11? Overall, Patric appears quite well. I did recommend a [...] decrease the interval of those as needed. Patric was comfortable with this plan. Thank you again for allowing me to participate in Patric's care. I shall continue to keep you advised of his progress. Plan: * Treatment: * 2.?History of adenomatous polyp of colon?Procedure: COLONOSCOPY (Ordered for 02/05/2024)* with MACsched for 05/21/24 at 11:30 ammiralax 3.?Colon cancer screening?Procedure: COLONOSCOPY (Ordered for 02/05/2024)* with MACsched for 05/21/24 at 11:30 ammiralax * Procedure Codes:?3017F COLOR ECTAL CA SCREEN DOC [id number] TOBACCO NON-[id number] BP SCR NOT PRFRM REC REASON NOS * Preventive Medicine:? ??Counseling:?Care goal follow-up plan:?Above Normal BMI Follow-up?Giving encouragement to exercise,?BMI management provided?Yes.? * Follow Up:?prn * * Sign off status: Completed true * Provider:?Palmer Paz MD Date:? 024 Generated for Estefania nagel/Mery/Blu on:?12/18/2024 04:12 PM EDT History and Physical Notes * HPI (History of Present Illness) Category Sub-Category Detail Notes Category Not es incontinence I saw Patric in consultation today in regard to his underlying history of a tubular adenoma of the colon, needs colorectal cancer screening, and history of hereditary hemachromatosis. I last saw Patric in 2018, at which time he underwent a negative followup screening colonoscopy. Since that time he has been feeling well. He enjoys a good appetite, without any dysphagia, early satiety, abdominal pain, jaundice, nor unintentional weight loss. He does take Prilosec every other day with good relief of heartburn symptoms. He did have an upper endoscopy back in 2006 that was negative for any significant findings. He reports his bowel movements have been regular without any signs of bleeding. He reports a family history of colon cancer in a grandfather. He did have a tubular adenoma removed on his initial colonoscopy in 2006. In regard to his underlying hereditary hemochromatosis he describes having a phlebotomy about every 6 months or so. I did check the hospital computer and did not see any lab work in the past year or so. He did have a normal CBC with platelet count and liver profile in August of 2022. In 2020 he had a ferritin of 315 with an iron of 227. Examination Category Sub-Category Detail Notes Category Not es General Examination GENERAL APPEARANCE: pleasant , well nourished, well developed, in no acute distress EYES: sclera non-icteric NECK/THYROID: no cervical lymphade nopathy, neck supple HEART: S1, S2 normal LUNGS: clear to auscultatio n bilaterally ABDOMEN: normal bowel sounds, no guarding or rigidity, no hepatosplenomegaly, no masses palpable, soft, nontender, nondistended. NEUROLOGIC: alert and oriented SKIN: nonjaundiced, no spi yvonne angiomata. EXTREMITIES: no edema ORAL CAVITY: mucosa moist
== END 2024-12-18 13:14 | disposition home or self-care (01) ==
LOC: HO.BBR 13:13
PROVIDERS: Visit Provider Internal Medicine
DX: Z13.89 Encounter for screening for other disorder (principal)

== ENCOUNTER 2025-01-06 15:23 | Outpatient (AMB) | payer BC, SELFPAY ==
--- NOTE | 2025-01-06 15:25 | MHC.PC.OV ---
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 Required: No Accompanied by: Self / Same As Patient Allergies Penicillins Allergy (Mild, Verified 01/06/25 15:25) UNKNOWN Medication List - Last Reconciled 01/06/25 by KIARA Diop levothyroxine (Levoxyl) 125 mcg PO DAILY omeprazole 20 mg PO DAILY promethazine 25 mg NM Q6H PRN Tobacco use date assessed: 01/06/25 Dental Screening Dental Screen Date: 01/06/25 Did you have a dental visit in the last 12 months?: Yes Did you have a dental problem in the last 6 months where you did not have access to dental care?: No Was dental information given to patient?: Patient has dentist HPI HPI Comments History of Present Illness Details 64-year-old male presents to the office for routine follow-up with history of hemochromatosis and hypothyroidism. He has been treating his hemochromatosis since age 23 with phlebotomy/donations every 3 months. He does become symptomatic with lethargy, brain fog, and arthralgias when he is due for donation. Last donation was last month. He was previously following with endocrinology for his hypothyroidism though this is uncomplicated. He is overdue for labs. He reports that his family have been tested for hemochromatosis. He has no other concerns at this time. GERD is stable [facility] Medical History (Updated 01/06/25 @ 17:53 by KIARA Diop) GERD (gastroesophageal reflux disease) Hiatal hernia Testicular cancer Thyroid disease Hemochromatosis Surgical History History of esophagogastroduodenoscopy (EGD) Hx of left knee surgery Hx of cholecystectomy History of removal of testicle H/O colonoscopy (~05/21/24) Hx of lymph node excision Family History (Updated 01/06/25 @ 15:32 by BROOKS Mar) Mother No problems noted. Father No problems noted. Maternal Grandfather Colon cancer Social History (Updated 01/06/25 @ 15:26 by TONI Mar Housing: House Are you a primary patient care associate to a significant other at home: No Do you presently have visiting nurse or other home services: No Alcohol intake: current Patient Tobacco Use Status: Never used Tobacco service: No Current occupational status: employed Cognitive needs: No Hearing needs: Yes (Right ear ) Vision needs: Yes (Rx glasses) Questionnaire PHQ-9 Over the last 2 weeks, how often have you been bothered by any of the following problems? 1. Little interest or pleasure in doing things: not at all 2. Feeling down, depressed, or hopeless: not at all 3. Trouble falling or staying asleep, or sleeping too much: not at all 4. Feeling tired or having little energy: not at all 5. Poor appetite or overeating: not at all 6. Feeling bad about yourself - or that you are a failure or have let yourself or your family down: not at all 7. Trouble concentrating on things, such as reading the newspaper or watching television: not at all 8. Moving or speaking so slowly that other people could have noticed. Or the opposite - being so fidgety or restless that you have been moving around a lot more than usual: not at all 9. Thoughts that you would be better off or of hurting yourself in some way: not at all Total score: 0 Source: Developed by Drs. Palmer Eid, Dottie Naik, Orlando Zhou and colleagues, with an educational brittany from [employer]. Thrive Questionnaire Date Thrive assessed: 01/06/25 I am a: Patient What is your living situation today?: I have a steady place to live Within the past 12 months, did the food you bought not last and you didn't have the money to get more?: Never true Within the past 12 months, did you worry whether your food would run out before you got money to buy more?: Never true Do you have trouble paying for medicines?: No Do you have trouble getting transportation to medical appointments?: No Do you have trouble paying your heating and electricity bill?: No Do you have trouble taking care of your child, family member or friend?: No Do you have trouble with day-to-day activities such as bathing, preparing meals, shopping, managing finances, etc.?: No Are you currently unemployed and looking for a job?: No Are you interested in more education?: No Please select the resources that you would like help with: None THRIVE Score: 0 AUDIT C Alcohol Use Questionnaire (AUDIT-C) 1. How often do you have a drink containing alcohol?: Monthly or less Total Score: 1 MARY-7 AMB Questionnaire MARY-7 Date MARY - 7 assessed: 01/06/25 Feeling nervous, anxious, or on edge: 0 = Not at all Not being able to stop or control worryin = Not at all Worrying too much about different things: 0 = Not at all Trouble relaxin = Not at all Being so restless that it is hard to sit still: 0 = Not at all Becoming easily annoyed or irritable: 0 = Not at all Feeling afraid as if something awful might happen: 0 = Not at all Total MARY-7 score (0-4 normal; 5-9 mild; 10-14 moderate; 15-21 severe): 0 Source: Developed by Drs. Palmer Eid, Dottie Naik, Orlando Zhou and colleagues, with an educational brittany from [employer]. Review of Systems Const All systems reviewed & are unremarkable except as noted in HPI and below Physical exam (Primary Care) Vital Signs: Last Vital Signs Temp 97.7 F 01/06/25 15:33 Pulse 63 01/06/25 15:33 Resp 16 01/06/25 15:33 BP 120/90 H 01/06/25 15:33 Pulse Ox 98 01/06/25 15:33 Oxygen Delivery Method Room Air 01/06/25 15:33 BMI result Body Mass Index 25.3 Tobacco/Smoking Status: Tobacco use Status Tobacco use date assessed 01/06/25 01/06/25 15:36 Patient Tobacco Use Status Never used Tobacco 01/06/25 15:36 PHQ-9: PHQ-9 Score PHQ-9: Total score 0 01/06/25 17:43 Thrive Assessment: Date of Thrive Assessment Date Thrive assessed 01/06/25 01/06/25 15:36 Const Other: Constitutional - Awake and Alert, No apparent distress Eyes - PERRLA, EOMI Cardiovascular - S1S2, RRR, No edema Respiratory - Normal lung expansion, Normal respiratory effort, No respiratory distress, CTA bilaterally Extremities - no calf tenderness bilaterally, no swelling Skin - Warm/Dry Neurological - Alert & oriented x3 Psychological - Appropriate affect Coding Level of Care Code New Pt Level 4 (03976) Complex EM visit Add On G2211 Diagnoses Hypothyroidism E03.9 Hemochromatosis E83.119 GERD (gastroesophageal reflux disease) K21.9 Assessment & Plan Assessment & Plan (1) Hypothyroidism: Code(s): E03.9 - Hypothyroidism, unspecified Category: Medical Plan: TSH ordered. Continue levothyroxine 125 mcg daily, dose to be adjusted as appropriate pending results. (2) Hemochromatosis: Code(s): E83.119 - Hemochromatosis, unspecified Category: Medical Plan: CBC, liver panel, iron panel, ferritin levels ordered. Continue with blood donations every 3 months. Will recheck CBC, iron, ferritin prior to next blood donation. Stable at this time (3) GERD (gastroesophageal reflux disease): Code(s): K21.9 - Gastro-esophageal reflux disease without esophagitis Category: Medical Plan: Stable. Continue omeprazole and avoid triggering food items Plan Follow-up in 1 year, sooner if needed Orders: Orders Basic Metabolic Panel Today E03.9 - Hypothyroidism, unspecified, E83.119 - Hemochromatosis, unspecified, Z13.1 - Encounter for screening for diabetes mellitus, Z13.220 - Encounter for screening for lipoid disorders, Z51.89 - Encounter for other specified aftercare Hemoglobin A1c Today E03.9 - Hypothyroidism, unspecified, E83.119 - Hemochromatosis, unspecified, Z13.1 - Encounter for screening for diabetes mellitus, Z13.220 - Encounter for screening for lipoid disorders, Z51.89 - Encounter for other specified aftercare Complete Blood Count Auto Diff Today E03.9 - Hypothyroidism, unspecified, E83.119 - Hemochromatosis, unspecified, Z13.1 - Encounter for screening for diabetes mellitus, Z13.220 - Encounter for screening for lipoid disorders, Z51.89 - Encounter for other specified aftercare Free T4 (Free Thyroxine) Today E03.9 - Hypothyroidism, unspecified Ferritin 6 Weeks E83.119 - Hemochromatosis, unspecified Complete Blood Count Auto Diff 6 Weeks E83.119 - Hemochromatosis, unspecified Therapeutic Phlebotomy Today E83.119 - Hemochromatosis, unspecified PSA,Total (Free>4and<10) Today Z12.5 - Encounter for screening for malignant neoplasm of prostate Ferritin Today E03.9 - Hypothyroidism, unspecified, E83.119 - Hemochromatosis, unspecified, Z13.1 - Encounter for screening for diabetes mellitus, Z13.220 - Encounter for screening for lipoid disorders, Z51.89 - Encounter for other specified aftercare IRON PROFILE Today E03.9 - Hypothyroidism, unspecified, E83.119 - Hemochromatosis, unspecified, Z13.1 - Encounter for screening for diabetes mellitus, Z13.220 - Encounter for screening for lipoid disorders, Z51.89 - Encounter for other specified aftercare Liver Panel Today E03.9 - Hypothyroidism, unspecified, E83.119 - Hemochromatosis, unspecified, Z13.1 - Encounter for screening for diabetes mellitus, Z13.220 - Encounter for screening for lipoid disorders, Z51.89 - Encounter for other specified aftercare Lipid Panel Today E03.9 - Hypothyroidism, unspecified, E83.119 - Hemochromatosis, unspecified, Z13.1 - Encounter for screening for diabetes mellitus, Z13.220 - Encounter for screening for lipoid disorders, Z51.89 - Encounter for other specified aftercare Thyroid Stimulating Hormone Today E03.9 - Hypothyroidism, unspecified IRON PROFILE 6 Weeks E83.119 - Hemochromatosis, unspecified
[2025-01-06 15:33] VITALS: BP 120/90; PULSE 63; RESP 16; TEMP 36.5; O2SAT 98; BMI 25.3
--- OUTSIDE RECORDS SUMMARY | 2025-01-06 16:34 | XMS_ITS ---
Author Organization [facility] Address [address] [place] [address] Care Team Providers Care Mine Engineering Superintendent Name Role Phone Manpreet Winchester MD Primary Care Provider Plamer Quiles Unavailable [phone] Allergies Allergen (clinical drug ingredient) Drug/Non Drug [...] Problem History of adenomatous polyp of colon (298380505) History of adenomatous polyp of colon (Z86.010) Active confirmed Problem Colon cancer screening (Z12.11) Active confirmed Vital Signs Blood pressure systolic 00 mm Hg 02/05/20 24 Blood pressure diastolic 00 mm Hg 024 Height 70 in 02/05/2024 Weight 175 lbs 02/05/2024 BMI 25.11 kg/m2 02/05/2024 Encounters Encounter Location Date Provider Diagnosis [facility] [address] [place] [address] 02/05/2024 Palmer Paz Hereditary hemochromatosis E83.110 ; [...] Notes * ROMINA CABELLOOB:1960 (64 yo M)Acc No.[id number]:02/05/2024 Progress Notes Patient:?PATRIC CABELLO Provider:?Palmer Paz MD :1960???Age:63 Y???Sex:Male Cristian e:02/05/2024 Address:[address] [place] [address] [place], [place] Pcp:Manpreet Winchester MD Subjective: * Chief Complaints: [...] children.7 grandchildren. 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 ???Nonsmoker; occasional alcohol. * Medications:?TakingLevoxyl 1 [...] Procedure Codes:?3017F COLOR ECTAL CA SCREEN DOC [id number] TOBACCO [id number]-[id number] BP SCR NOT PRFRM REC REASON NOS * Preventive Medicine:? ??Counseling:?Care goal follow-up plan:?Above Normal BMI Follow-up?Giving encouragement to exercise,?BMI management provided?Yes.? * Follow Up:?prn * * Sign off status: Completed true * Provider:?Palmer Paz MD Date:? 024 Generated for Estefania nagel/Mery/Blu on:?01/06/2025 04:34 PM EDT History and Physical Notes * [...]
--- OUTSIDE RECORDS SUMMARY | 2025-01-06 16:34 | XMS_ITS ---
Author Organization [facility] Address [address] [place] [address] Care Team Providers Care Director Instrumentation Name Role Phone Manpreet Winchester MD Primary Care Provider Palmer Quiles [phone] REASON FOR VISIT screening,hx polyps Problems Problem Type SNOMED Code ICD Code Onset Dates Problem Status W/U Status Risk Notes Problem Diverticular disease of colon (975126103) Diverticulosis of large intestine without perforation or abscess without bleeding (K57.30) Active confirmed Encounters Encounter Location Date Provider Diagnosis [facility] Outpatient [address] [place] [phone] 05/21/2024 Palmer Paz Colon cancer scree tg [...] Notes * ROMINA CABELLOOB:1960 (64 yo M)Acc No.[id number]:05/21/2024 COLON WITH MAC Patient:?CABELLOCARRI DOWLINGY Provider:?Palmer Paz MD :1960???Age:64 Y???Sex:Male Cristian e:05/21/2024 Address:[address] [place] [address], [place], [place] Pcp:Manpreet Winchester MD Subjective: * Chief Complaints: * ???1. Screening,hx polyps. * Medical History:? Objective: * Vitals:? Assessment: * Assessment: 1.?Colon cancer screening - Z12.11 (Primary)???2.?Colon polyps - K63.5???3.?Diverticulosis of large intestine without perforation or abscess without bleeding - K57.30???4.?Other hemorrhoids - K64.8??? Plan: * Treatment: * Procedure Codes:?49173 LESIO N REMOVAL COLONOSCOPY, Modifiers: PT * * The named appointment provid er may or may not be the originator of this progress note, and it is not deemed complete until electronically signed by the appointment provider. Sign off status: Pending * Provider:?Palmer Paz MD Date:? 024 Generated for Estefania nagel/Mery/eTransmitting on:?01/06/2025 04:34 PM EDT
--- OUTSIDE RECORDS SUMMARY | 2025-01-06 16:34 | XMS_ITS | Patient Health Record ---
Author Organization [facility] Address [address] [place] [address] Care Team Providers Care Zumba Instructor Name Role Phone Manpreet Winchester MD Primary Care Provider Palmer Quiles [phone] Allergies Allergen (clinical drug ingredient) Drug/Non Drug Allergy documented on EMR Reaction Allergy Type Onset Date Status Penicillin Unknown Drug Allergy Active Results Component Value Reference Range Notes Complete Blood Count Auto Di ff Reviewed date:02/15/2024 01:07:19 PM Interpretation: Performing Lab:[facility] [place], [address] [place] [address] Notes/Report: White Blood Count 4.4 4.8-10.8 X10*3/uL [...] INR Reviewed date:02/15/2024 01:06:50 PM Interpretation: Performing Lab:[address] [address] Notes/Report: Prothrombin Time 12.2 11.1-13.3 SEC INTERNATIONAL [...] Panel Reviewed date:02/15/2024 01:08:01 PM Interpretation: Performing Lab:[address] [address] Notes/Report: Bilirubin Total 1.5 0.0-1.0 mg/dL Bilirubin Direct 0.5 0.0-0.5 mg/dL Aspartate Amino Transferase 26 5-37 U/L Alanine Aminotransferase 39 0-40 U/L Total Protein 7.1 6.5-8.0 g/dL Albumin Level 4.3 3.5-5.0 g/dL Alkaline Phosphatase 75 39-117 U/L IRON PROFILE Reviewed date:03/02/2024 02:43:55 PM Interpretation: Performing Lab:[address] [place] [address] Notes/Report: Iron 251 45-160 mcg/dL Total Iron Binding Capacity 276 228-428 mcg/dL Percent Iron Saturation 91 15-50 % Unsaturated Iron Binding < 25 Ferritin Reviewed date:02/29/2024 05:55:37 PM Interpretation: Performing Lab:[facility] [place], [address] [place] [address] Notes/Report: Ferritin 480 20-250 ng/mL Alpha Fetoprotein Reviewed date:05/18/2024 06:16:23 PM Interpretation: Performing Lab:[facility] [place], [address] [place] [address] Notes/Report: Alpha Fetoprotein 1.2 <6.1 ng/mL This test was performed using the [employer] chemiluminescent method. Values obtained from different assay methods cannot be used interchangeably. AFP levels, regardless of value, should not be interpreted as absolute evidence of the presence or absence of disease. THIS TEST WAS PERFORMED AT: [facility] [address] [place] [address] MEGGAN KAUR MD Liver Fibrosis Pnl Reviewed date:05/18/2024 06:16:31 PM Interpretation: Performing Lab:[address] [address] Notes/Report: Liver Fibrosis Score 0.51 Liver Fibrosis [...] a>0.62 and a<=1.00 : A3 (severe activity) QBQ-Fvofg-8-Macroglobuli n 237 106-279 mg/dL FIB-Haptoglobin 79 43-212 mg/dL FIB-Apolipoprotein A1 157 94-176 mg/dL FIB-Total Bilirubin 1.1 0.2-1.2 mg/dL FIB-GGT 23 3-70 U/L FIB-ALT 29 9-46 U/L Reference ID [id number] Footnote SEE NOTE The reliability of results is dependent on compliance with the preanalytical and analytical conditions recommended by [employer]. The tests have to be deferred for: [...] The performance characteristics have been determined by [facility]. It has not been cleared or approved by the U.S. Food and Drug Administration. Performance characteristics refer to the analytical performance of the test. Sentient, the associated logo, SwitchForce and all associated [employer] ceja are the registered trademarks of [employer]. All third republican ceja - (R) and (TM) - are the property of their respective owners. (C) 4724-4776 [employer] Incorporated. All rights reserved. THIS TEST WAS PERFORMED AT: [facility] [address] [place] [address] WALESKA JAIME MD,PHD,ROOPA US abdomen comp w elastograp hy Reviewed date:05/18/2024 06:14:55 PM Interpretation: Performing Lab: Notes/Report: [address] [address] Ultrasound Report Signed Patient: Lakesha Olivares MR#: [id number] 563 : 1960 Acct:[id number] Age/Sex: 64 / M ADM Date: 02/15/24 Loc: HO.US Attending Dr: Palmer Paz MD Ordering Physician: Palmer Paz MD Date of Service: 02/15/24 Procedure(s): US abdomen comp w elastography Accession Number(s): [id number] cc: Manpreet Winchester MD; Palmer Paz MD [...] in OV> 03/05/24 1830 DD/ 0929 TD/TT: Regional Wildlife Agent: [address] [place] [address] Ultrasound Report Signed Patient: Mirza Olivares MR#: [id number] 563 : 1960 Acct:[id number] Age/Sex: 64 / M ADM Date: 02/15/24 Loc: HO.US Attending Dr: Palmer Paz MD Ordering Physician: Palmer Paz MD Date of Service: 02/15/24 Procedure(s): US abdomen comp w elastography Accession Number(s): [id number] cc: Manpreet Winchester MD ; Palmer Paz [...] Jeffrey MD in OV> 03/05/24 1830 DD/ 0976 TD/TT: Regional Wildlife Agent: LAUREN Pathology (Not yet reviewed by provider) Interpretation: Performing Lab:[facility] [place], [address] [place] [address] Notes/Report: --- Name: Lakesha Olivares Age/Sex: 64/M : 1960 Unit#: [id number] Attend Dr: Palmer Paz MD Re05/21/24 Status : [facility] Location: [facility] Disch: --- SPEC : [id number] RECD : 05/21/24 STATUS: [facility] NUM: [id number] PETER: 05/21/24-[address] [facility] [address]: Palmer Paz MD ENTERED: 05/21/24-05 [...] [address] [place] [id number] Palmer Paz MD [facility] [address] [place] [id number] --- Signed (signature on file) Mirtha Audra 05/22/24 1533 --- END OF REPORT Reason For Referral No Information Medications Medication SIG (Take, Route, Fr equency, Duration) Notes Start Date End Date Status PriLOSEC Active Levoxyl 125 mg 1 po qd Activ e Immunizations Vaccine Route Administration Date Status Comme nts Influenza Unknown 09/17/2018 Refused Problems Problem Type SNOMED Code ICD Code Onset Dates Problem Status W/U Status Risk Notes Problem Colon cancer screening (222031923) Colon cancer screening (Z12.11) Active confirmed Problem 932485253 Encounter for screening for malignant neoplasm of colon (Z12.11) Active confirmed Problem History of adenomatous polyp of colon (037628865) History of adenomatous polyp of colon (Z86.010) Active confirmed Problem 425171703 Abdominal bloati ng (R14.0) Active confirmed Problem 135029824 Change in bowel habits (R19.4) Active confirmed Problem 03383466 Hereditary hemochromatosis (E83.110) Active confirmed Problem Diverticular disease of colon (330075801) Diverticulosis of large intestine without perforation or abscess without bleeding (K57.30) Active confirmed Problem 394902469 Hx of adenomatou s colonic polyps (Z86.010) Active confirmed Vital Signs Blood pressure diastolic 00 mm Hg 02/05/2024 Height 70 in 02/05/2024 Blood pressure systolic 00 mm Hg 02/05/2024 Weight 175 lbs 02/05/2024 BMI 25.11 kg/m2 02/05/2024 Encounters Encounter Location Date Provider Diagnosis [facility] [address] [place] [phone] 05/21/2024 Palmer Paz Colon cancer screeni ng Z12.11 ; Colon polyps K63.5 ; Diverticulosis of large intestine without perforation or abscess without bleeding K57.30 and Other hemorrhoids K64.8 [facility] [address] [place] [address] 02/05/2024 Palmer Paz Hereditary hemochromatosis E83.110 ; History of adenomatous polyp of colon Z86.010 and Colon cancer screening Z12.11 [facility] [address] [place] [address] 03/02/2024 Palmer Paz Assessments Encounter Date Diagnosis [...] Insured Coverage Start Date Coverage End Date [facility] [employer] PROF[employer]AL CLAIMS [address] [place] [address] [id number] [address] LAKESHA Self - patient is the insured Medical [...] dissection. He did not receive chemotherapy. 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
--- OUTSIDE RECORDS SUMMARY | 2025-01-06 16:35 | XMS_ITS ---
Author Organization [facility] Address [address] [place] [address] Care Team Providers Care Paving Plant Operator Name Role Phone Manpreet Winchester MD Primary Care Provider Palmer Quiles [phone] REASON FOR VISIT Phlebotomies and U/S Encounters Encounter Location Date Provider Diagnosis [facility] [address] [place] [address] 03/02/2024 Palmer Paz Plan Of Treatment No Information Progress Notes * ROMINA CABELLOOB:1960 (64 yo M)Acc No.[id number]:03/02/2024 Patient:?LAKESHA CABELLO :1960???Age:64 Y???Sex:Male Address:[address] [place] [address] * true * Date:? Generated for Jessiei orbe/Mery/eTransmitting on:?01/06/2025 04:34 PM EDT
== END 2025-01-06 16:13 | disposition home or self-care (01) ==
LOC: HO.HMCHD 15:24
PROVIDERS: PCP Physician Assistant; Visit Provider Physician Assistant
DX: E03.9 Hypothyroidism, unspecified (principal); E83.119 Hemochromatosis, unspecified; K21.9 Gastro-esophageal reflux disease without esophagitis

== ENCOUNTER → 2025-01-06 15:23 | Outpatient (BNVA) | payer BC, SELFPAY | PROVIDERS: PCP Physician Assistant; Visit Provider Physician Assistant ==

== ENCOUNTER 2025-01-13 07:59 | Outpatient (REF) | payer BC, SELFPAY ==
--- OUTSIDE RECORDS SUMMARY | 2025-01-13 08:01 | XMS_ITS ---
Author Organization [facility] Address [address] [place] [address] Care Team Providers Care Star Route Mail Driver Name Role Phone Manpreet Winchester MD Primary Care Provider Palmer Quiles Unavailable [phone] Allergies Allergen (clinical drug ingredient) Drug/Non Drug [...] Problem History of adenomatous polyp of colon (306294694) History of adenomatous polyp of colon (Z86.010) Active confirmed Problem Colon cancer screening (Z12.11) Active confirmed Vital Signs Blood pressure systolic 00 mm Hg 02/05/20 24 Blood pressure diastolic 00 mm Hg 024 Height 70 in 02/05/2024 Weight 175 lbs 02/05/2024 BMI 25.11 kg/m2 02/05/2024 Encounters Encounter Location Date Provider Diagnosis [facility] [address] [place] [address] 02/05/2024 Palmer Paz Hereditary hemochromatosis E83.110 ; [...] Notes * ROMINA CABELLOOB:1960 (64 yo M)Acc No.[id number]:02/05/2024 Progress Notes Patient:?PATRIC CABELLO Provider:?Palmer Paz MD :1960???Age:63 Y???Sex:Male Cristian e:02/05/2024 Address:[address] [place] [address] [place], [place] Pcp:Manpreet Winchester MD Subjective: * Chief Complaints: [...] children.7 grandchildren. 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 ???Nonsmoker; occasional alcohol. * Medications:?TakingLevoxyl 1 [...] Procedure Codes:?3017F COLOR ECTAL CA SCREEN DOC DXX9239J TOBACCO NON-DUADK6859 BP SCR NOT PRFRM REC REASON NOS * Preventive Medicine:? ??Counseling:?Care goal follow-up plan:?Above Normal BMI Follow-up?Giving encouragement to exercise,?BMI management provided?Yes.? * Follow Up:?prn * * Sign off status: Completed true * Provider:?Palmer Paz MD Date:? 024 Generated for Estefania nagel/Mery/Blu on:?01/13/2025 08:01 AM EDT History and Physical Notes * HPI [...]
--- OUTSIDE RECORDS SUMMARY | 2025-01-13 08:01 | XMS_ITS | Patient Health Record ---
Author Organization [facility] Address [address] [place] [address] Care Team Providers Care Able Bodied Watchman Name Role Phone Manpreet Winchester MD Primary Care Provider Palmer Quiles [phone] Allergies Allergen (clinical drug ingredient) Drug/Non Drug Allergy documented on EMR Reaction Allergy Type Onset Date Status Penicillin Unknown Drug Allergy Active Results Component Value Reference Range Notes Complete Blood Count Auto Di ff Reviewed date:02/15/2024 01:07:19 PM Interpretation: Performing Lab:[facility], [address] [place] [address] Notes/Report: White Blood Count 4.4 4.8-10.8 X10*3/uL [...] INR Reviewed date:02/15/2024 01:06:50 PM Interpretation: Performing Lab:[address] [address] Notes/Report: Prothrombin Time 12.2 11.1-13.3 SEC INTERNATIONAL [...] Panel Reviewed date:02/15/2024 01:08:01 PM Interpretation: Performing Lab:[address] [address] Notes/Report: Bilirubin Total 1.5 0.0-1.0 mg/dL Bilirubin Direct 0.5 0.0-0.5 mg/dL Aspartate Amino Transferase 26 5-37 U/L Alanine Aminotransferase 39 0-40 U/L Total Protein 7.1 6.5-8.0 g/dL Albumin Level 4.3 3.5-5.0 g/dL Alkaline Phosphatase 75 39-117 U/L IRON PROFILE Reviewed date:03/02/2024 02:43:55 PM Interpretation: Performing Lab:[address] [place] [address] Notes/Report: Iron 251 45-160 mcg/dL Total Iron Binding Capacity 276 228-428 mcg/dL Percent Iron Saturation 91 15-50 % Unsaturated Iron Binding < 25 Ferritin Reviewed date:02/29/2024 05:55:37 PM Interpretation: Performing Lab:[facility], [address] [place] [address] Notes/Report: Ferritin 480 20-250 ng/mL Alpha Fetoprotein Reviewed date:05/18/2024 06:16:23 PM Interpretation: Performing Lab:[facility], [address] [place] [address] Notes/Report: Alpha Fetoprotein 1.2 <6.1 ng/mL This test was performed using the [employer] chemiluminescent method. Values obtained from different assay methods cannot be used interchangeably. AFP levels, regardless of value, should not be interpreted as absolute evidence of the presence or absence of disease. THIS TEST WAS PERFORMED AT: [facility] [address] [place] [address] MEGGAN KAUR MD Liver Fibrosis Pnl Reviewed date:05/18/2024 06:16:31 PM Interpretation: Performing Lab:[address] [address] Notes/Report: Liver Fibrosis Score 0.51 Liver Fibrosis [...] a>0.62 and a<=1.00 : A3 (severe activity) YAL-Eddky-8-Macroglobuli n 237 106-279 mg/dL FIB-Haptoglobin 79 43-212 mg/dL FIB-Apolipoprotein A1 157 94-176 mg/dL FIB-Total Bilirubin 1.1 0.2-1.2 mg/dL FIB-GGT 23 3-70 U/L FIB-ALT 29 9-46 U/L Reference ID [id number] Footnote SEE NOTE The reliability of results is dependent on compliance with the preanalytical and analytical conditions recommended by [employer]. The tests have to be deferred for: [...] The performance characteristics have been determined by [facility]. It has not been cleared or approved by the U.S. Food and Drug Administration. Performance characteristics refer to the analytical performance of the test. [employer], the associated logo, Light Magic and all associated [employer] ceja are the registered trademarks of [employer]. All third constitution party ceja - (R) and (TM) - are the property of their respective owners. (C) 0523-4923 [employer] Incorporated. All rights reserved. THIS TEST WAS PERFORMED AT: [facility] [address] [place] [address] WALESKA JAIME MD,PHD,ROOPA US abdomen comp w elastograp hy Reviewed date:05/18/2024 06:14:55 PM Interpretation: Performing Lab: Notes/Report: [address] [address] Ultrasound Report Signed Patient: Lakesha Olivares MR#: [id number] 563 : 1960 Acct:[id number] Age/Sex: 64 / M ADM Date: 02/15/24 Loc: HO.US Attending Dr: Palmer Paz MD Ordering Physician: Palmer Paz MD Date of Service: 02/15/24 Procedure(s): US abdomen comp w elastography Accession Number(s): [id number] cc: Manpreet Winchester MD; Palmer Paz MD [...] in OV> 03/05/24 1830 DD/ 0929 TD/TT: [facility]anner: [address] [place] [address] Ultrasound Report Signed Patient: Mirza Olivares MR#: [id number] 563 : 1960 Acct:[id number] Age/Sex: 64 / M ADM Date: 02/15/24 Loc: HO.US Attending Dr: Palmer Paz MD Ordering Physician: Palmer Paz MD Date of Service: 02/15/24 Procedure(s): US abdomen comp w elastography Accession Number(s): [id number] cc: Manpreet Winchester MD ; Palmer Paz [...] Jeffrey MD in OV> 03/05/24 1830 DD/ 0973 TD/TT: Quebracho Tanner: LAUREN Pathology (Not yet reviewed by provider) Interpretation: Performing Lab:[facility], [address] [place] [address] Notes/Report: --- Name: Lakesha Olivares Age/Sex: 64/M : 1960 Unit#: [id number] Attend Dr: Palmer Paz MD Re05/21/24 Status : [facility] Location: [facility] Disch: --- SPEC : [id number] RECD : 05/21/24 STATUS: [facility] NUM: [id number] PETER: 05/21/24-757 [facility] DR: Palmer Paz MD ENTERED: 05/21/24-05 23 [...] [address] [place] [id number] Palmer Paz MD [facility] [address] [place] [id number] --- Signed (signature on file) Mirtha Audra [...] Status Risk Notes Problem Colon cancer screening (213124926) Colon cancer screening (Z12.11) Active confirmed Problem 754031933 Encounter for screening for malignant neoplasm of colon (Z12.11) Active confirmed Problem History of adenomatous polyp of colon (281399687) History of adenomatous polyp of colon (Z86.010) Active confirmed Problem 147947706 Abdominal bloati ng (R14.0) Active confirmed Problem 621975911 Change in bowel habits (R19.4) Active confirmed Problem 00424780 Hereditary hemochromatosis (E83.110) Active confirmed Problem Diverticular disease of colon (307900965) Diverticulosis of large intestine without perforation or abscess without bleeding (K57.30) Active confirmed Problem 672426511 Hx of adenomatou s colonic polyps (Z86.010) Active confirmed Vital Signs Blood pressure diastolic 00 mm Hg 02/05/2024 Height 70 in 02/05/2024 Blood pressure systolic 00 mm Hg 02/05/2024 Weight 175 lbs 02/05/2024 BMI 25.11 kg/m2 02/05/2024 Encounters Encounter Location Date Provider Diagnosis [facility] [address] [place] [phone] 05/21/2024 Palmer Paz Colon cancer screeni ng Z12.11 ; Colon polyps K63.5 ; Diverticulosis of large intestine without perforation or abscess without bleeding K57.30 and Other hemorrhoids K64.8 [facility] [address] [place] [address] 02/05/2024 Palmer Paz Hereditary hemochromatosis E83.110 ; History of adenomatous polyp of colon Z86.010 and Colon cancer screening Z12.11 [facility] [address] [place] [address] 03/02/2024 Palmer Paz Assessments Encounter Date Diagnosis [...] Insured Coverage Start Date Coverage End Date [facility] [place] [employer]AL CLAIMS [address] [place] [address] [id number] [address] LAKESHA Self - patient is [...]
--- OUTSIDE RECORDS SUMMARY | 2025-01-13 08:01 | XMS_ITS ---
Author Organization [facility] Address [address] [place] [address] Care Team Providers Care Design Printing Machine Set Up Operator Name Role Phone Manpreet Winchester MD Primary Care Provider Palmer Quiles [phone] REASON FOR VISIT screening,hx polyps Problems Problem Type SNOMED Code ICD Code Onset Dates Problem Status W/U Status Risk Notes Problem Diverticulosis o f large intestine without perforation or abscess without bleeding (K57.30) Active confirmed Encounters Encounter Location Date Provider Diagnosis [facility] [address] [place] [phone] 05/21/2024 Palmer Paz Colon cancer scree tg [...] Notes * ROMINA CABELLOOB:1960 (64 yo M)Acc No.[id number]:05/21/2024 COLON WITH MAC Patient:?LAKESHA CABELLO Provider:?Palmer Paz MD :1960???Age:64 Y???Sex:Male Cristian e:05/21/2024 Address:[address] [place] [address] [address], [place] Pcp:Manpreet Winchester MD Subjective: * Chief Complaints: * ???1. Screening,hx polyps. * Medical History:? Objective: * Vitals:? Assessment: * Assessment: 1.?Colon cancer screening - Z12.11 (Primary)???2.?Colon polyps - K63.5???3.?Diverticulosis of large intestine without perforation or abscess without bleeding - K57.30???4.?Other hemorrhoids - K64.8??? Plan: * Treatment: * Procedure Codes:?13601 LESIO N REMOVAL COLONOSCOPY, Modifiers: PT * * The named appointment provid er may or may not be the originator of this progress note, and it is not deemed complete until electronically signed by the appointment provider. Sign off status: Pending * Provider:?Palmer Paz MD Date:? 024 Generated for Estefania nagel/Mery/eTransmitting on:?01/13/2025 08:01 AM EDT
--- OUTSIDE RECORDS SUMMARY | 2025-01-13 08:01 | XMS_ITS ---
Author Organization [facility] Address [address] [place] [address] Care Team Providers Care Structural Engineering Project Manager Name Role Phone Manpreet Winchester MD Primary Care Provider Palmer Quiles [phone] REASON FOR VISIT Phlebotomies and U/S Encounters Encounter Location Date Provider Diagnosis [facility] [address] [place] [address] 03/02/2024 Palmer Paz Plan Of Treatment No Information Progress Notes * ROMINA CABELLOOB:1960 (64 yo M)Acc No.[id number]:03/02/2024 Patient:?LAKESHA CABELLO :1960???Age:64 Y???Sex:Male Address:[address] [place] [address] * true * Date:? Generated for Jessiei robe/Mery/eTransmitting on:?01/13/2025 08:01 AM EDT
[2025-01-13 09:51] LABS: MANUAL DIFF FLAG NO
[2025-01-13 10:26] LABS: Basophils Absolute Auto 0.1 X10*3/uL (0.0-0.2); Basophils Percent Auto 1.3 % (0-2); Eosinophils Absolute Auto 0.3 X10*3/uL (0.0-0.4); Eosinophils Percent Auto 7.2 % (0-4); Hematocrit 43.3 % (42.0-52.0); Hemoglobin 14.9 g/dl (14.0-18.0); Imm Gran Abs Auto 0.02 X10*3/uL (0.00-0.03); Imm Gran Pct Auto 0.5 % (0.0-0.4); Lymphocytes Absolute Auto 1.4 X10*3/uL (1.2-4.9); Lymphocytes Percent Auto 36.2 % (20-40); Mean Corpuscular HGB Conc 34.4 g/dl (31.0-36.0); Mean Corpuscular Hemoglobin 30.7 pg (27.0-33.0); Mean Corpuscular Volume 89.1 fL (80.0-98.0); Mean Platelet Volume 10.3 fL (9.4-12.4); Monocytes Absolute Auto 0.5 X10*3/uL (0.1-1.2); Neutrophils Absolute Auto 1.6 x10*3/uL (2.0-8.3); Neutrophils Percent Auto 41.8 % (45-73); Platelet Count 176 X10*3/uL (160-400); Red Blood Count 4.86 X10*6/uL (4.60-5.80); Red Cell Distribution Width 13.2 % (11.0-16.0); White Blood Count 3.8 X10*3/uL (4.8-10.8)
[2025-01-13 10:34] LABS: Estimated Average Glucose 94 mg/dL; Hemoglobin A1C 116.2259 umol/L; Hemoglobin A1c % 4.9 % (<6.0); Total Hemoglobin (HGBA1C) 3927.5003 umol/L
[2025-01-13 11:00] LABS: PSA,Total (Free>4and<10) 2.82 ng/mL (0.00-4.00)
[2025-01-13 11:02] LABS: Alanine Aminotransferase 22 U/L (0-40); Albumin Level 4.1 g/dL (3.5-5.0); Anion Gap 13 (12-20); Aspartate Amino Transferase 25 U/L (5-37); Bilirubin Direct 0.3 mg/dL (0.0-0.5); Bilirubin Total 1.1 mg/dL (0.0-1.0); Blood Urea Nitrogen 15 mg/dL (9-16); Carbon Dioxide 26 mmol/L (22-29); Chloride 107 mmol/L (96-108); Cholesterol 107 mg/dL (<200); Estimated Glomerular Filt Rate > 60; Glucose Random 70 mg/dL (60-115); HDL Cholesterol 43 mg/dL (>40); Iron 239 mcg/dL (45-160); LDL Cholesterol Calculated 54 mg/dL (<100); Percent Iron Saturation 91 % (15-50); Potassium 3.8 mmol/L (3.3-5.1); Sodium 142 mmol/L (135-145); Total Iron Binding Capacity 264 mcg/dL (228-428); Total Protein 6.9 g/dL (6.5-8.0); Triglycerides 54 mg/dL (<150); Unsaturated Iron Binding < 25 ug/dL
[2025-01-13 11:21] LABS: Ferritin 135 ng/mL (20-250); Free T4 (Free Thyroxine) 1.33 ng/dL (0.71-1.85); Thyroid Stimulating Hormone 0.44 uIU/mL (0.32-4.0)
[2025-01-13 13:12] LABS: Alkaline Phosphatase 64 U/L (39-117)
== END 2025-01-13 08:00 | disposition home or self-care (01) ==
LOC: HO.10HDL 07:59
PROVIDERS: Visit Provider Physician Assistant
DX: E83.119 Hemochromatosis, unspecified (principal); Z12.5 Encounter for screening for malignant neoplasm of prostate; E03.9 Hypothyroidism, unspecified; Z51.89 Encounter for other specified aftercare; Z13.1 Encounter for screening for diabetes mellitus; Z13.220 Encounter for screening for lipoid disorders
CPT/HCPCS: 36415; 80048; 80061; 80076; 82728; 83036; 83540; 84153; 84439; 84443; 85025

== ENCOUNTER 2025-08-06 14:57 | Outpatient (REF) | payer BC, SELFPAY ==
[2025-08-06 15:08] LABS: MANUAL DIFF FLAG NO
[2025-08-06 15:09] LABS: Hematocrit 46.0 % (42.0-52.0); Hemoglobin 16.0 g/dl (14.0-18.0); Imm Gran Abs Auto 0.02 X10*3/uL (0.00-0.03); Imm Gran Pct Auto 0.3 % (0.0-0.4); Lymphocytes Absolute Auto 2.5 X10*3/uL (1.2-4.9); Mean Corpuscular HGB Conc 34.8 g/dl (31.0-36.0); Mean Corpuscular Hemoglobin 30.9 pg (27.0-33.0); Mean Corpuscular Volume 88.8 fL (80.0-98.0); NRBC Abs Auto 0.000 X10*3/uL (0.0-0.012); NRBC Pct Auto 0.0 /100WBC (0.0-0.2); Platelet Count 210 X10*3/uL (160-400); Red Blood Count 5.18 X10*6/uL (4.60-5.80); White Blood Count 5.7 X10*3/uL (4.8-10.8)
[2025-08-06 15:48] LABS: Iron 245 mcg/dL (45-160); Percent Iron Saturation 91 % (15-50); Total Iron Binding Capacity 270 mcg/dL (228-428); Unsaturated Iron Binding < 25 ug/dL
[2025-08-06 16:01] LABS: Ferritin 187 ng/mL (20-250)
== END 2025-08-06 14:58 | disposition home or self-care (01) ==
LOC: HO.BBR 14:57
PROVIDERS: PCP Physician Assistant; Visit Provider Physician Assistant
DX: E83.110 Hereditary hemochromatosis (principal)
CPT/HCPCS: 36415; 82728; 83540; 85025